=== PATIENT | male | born 1945 | race Caucasian/White ===

== ENCOUNTER 2019-01-17 01:09 | Outpatient (CLI) | payer MEDICARE, OTHER, SELFPAY ==
--- NOTE | 2019-01-17 15:07 | DI.US_ITS ---
SYMPTOM/DIAGNOSIS: PAINLESS HEMATURIA, R31.9 RENAL ULTRASOUND: The kidneys are normal in size and shape. There is a 27 mm. in greatest diameter simple cyst of the left renal mid pole medulla. No other mass identified. No evidence of hydronephrosis or nephrolithiasis. Pre and postvoid urinary bladder volume measurements are 131 cc's and 0 cc's respectively. Prostate enlarged with prostatic volume calculated at 114 cc's. CONCLUSION: Essentially negative renal ultrasound. Incidental simple left renal cyst. Prostatic enlargement noted.
== END 2019-01-17 01:29 ==
PROVIDERS: PCP Family Medicine; Visit Provider Family Medicine
DX: R31.9 Hematuria, unspecified (principal); N28.1 Cyst of kidney, acquired; N40.0 Benign prostatic hyperplasia without lower urinary tract symptoms
CPT/HCPCS: 76770

== ENCOUNTER 2021-01-22 13:59 | Outpatient (CLI) | payer MEDICARE, SELFPAY ==
--- NOTE | 2021-01-22 13:45 | DI.US_ITS ---
Exam(s) US LOWER EXTREMITY VENOUS RT EXAM: US LOWER EXTREMITY VENOUS RT CLINICAL HISTORY: Rt lower extremity edema, R22.41, R60.9, r/o DVT TECHNIQUE: Grayscale, color, and doppler imaging of the deep venous system of the right lower extrem ity was performed. COMPARISON: US US renal from 01/17/2019 FINDINGS: There is no evidence of intraluminal thrombus and there is normal compression and augmentation demons trated within the common femoral vein, femoral vein, and popliteal vein. In the ipsilateral calf the interrogated veins also exhibit normal compression/ augmentation properti es. The ipsilateral saphenofemoral junction is patent. IMPRESSION: 1. No evidence of DVT in the right lower extremity. 2. DATA REPOSITORY:
[2021-01-22 14:39] LABS: D-Dimer 1225 ng/mlFEU (<500)
== END 2021-01-22 14:00 | disposition home or self-care (01) ==
LOC: LBO 14:11
PROVIDERS: PCP Nurse Practitioner Family; Visit Provider Nurse Practitioner Family
DX: R60.0 Localized edema (principal); R22.41 Localized swelling, mass and lump, right lower limb
CPT/HCPCS: 36415; 85379; 93971

== ENCOUNTER 2021-02-17 11:17 | Inpatient (IN) | payer MEDICARE, SELFPAY ==
[2021-02-17] VITALS (118 sets, daily range): BP systolic 99–169; BP diastolic 46–101; PULSE 57–92; RESP 16–30; TEMP 36.6–36.8; O2SAT 62–100
--- NOTE | 2021-02-17 11:15 | RT.EKG_ITS ---
APPROVED REPORT Exam: Resting ECG Reason for Exam: sob Patient Location: E HR:73 bpm ECG Measurements Heart Rate 73 AXIS [place] 197 P 57 QRSd 105 QRS 85 QT 382 T 62 QTc 421 Conclusion Sinus rhythm...normal P axis, V-rate 60- 99 sinus rhythm at 73, normal axis, T wave flattening aVL, V2, no prior for comparison, no STEMI, nondia gnostic EKG
--- NOTE | 2021-02-17 11:43 | ED.GENADUL_ITS ---
Discharge Plan Disposition Patient Disposition: [facility] INPATIENT Condition: Stable Discharge Details Clinical Impression: Acute dyspnea, Hypoxemia Admit Date/Time: 02/18/21 11:40 Admit Provider: Brandt Vidal Attending Provider: Brandt Vidal Primary Care Provider: Elkin Oshea ED Provider: Edwin Gan Discharge Data Discharge Date/Time-TO BE ENTERED AT DEPARTURE: 02/17/21 20:00 Medical Decision Making <Aisha Merida MD - Last Filed: 02/19/21 08:34> Murray Arndt is a 76-year-old man with history of hyperlipidemia, hypertension, atrial fibrillation who presented to the emergency department with shortness of breath of the past few days, also with mild cough. On exam patient with benign cardiopulmonary exam. There is edema of the right lower leg that patient reports is chronic since injury several weeks ago. Concern for acute coronary syndrome, pulmonary embolism, pneumonia, Covid (patient fully vaccinated), CHF, other. EKG is nondiagnostic. Plan for screening labs, chest x-ray, IV placement, telemetry. Will monitor and reassess. Troponin elevated at 0.07. Discussed Pt presentation and results with Dr. Guaman of cardiology, per his recommendation okay to hold heparin and other treatment for NSTEMI at this point, trend troponin. D-dimer elevated, will obtain CT chest. CT chest negative. Troponin elevated at 0.11 from 0.07. [facility] at [phone], awaiting callback. [facility] contacted at 1600, awaiting callback. [facility] refused secondary to capacity issues. Pt states that refuses to be transferred farther than [facility], will leave AMA and go home in that case. Patient presentation results discussed with cardiology team at [facility], patient accepted for transfer to their service tomorrow, accepting physician is Dr. Velazquez. Cardiology recommend heparin bolus and infusion in addition to aspirin, no Plavix at this time. No other acute interventions recommended. Plan for patient to be admitted here at [facility] with transfer to [facility] tomorrow. At this time transfer to [facility] tomorrow with admission here tonight is advantageous to attempting transfer to accepting facility with cardiology service tonight given Pt's repeated request to stay here or no farthe r than [facility]. Pt signed out to Dr. Gan at time of shift change with admission to [facility] pending. Medical Records Medical records reviewed: Yes I reviewed the patient's medical records. Imaging Data Radiologic Study: Attestation: I personally reviewed and interpreted this imaging study as follows: Radiologist's impression: Exam(s) XR PORTABLE CHEST AP EXAM: XR PORTABLE CHEST AP CLINICAL HISTORY: SOB. TECHNIQUE: 2D digital imaging was performed. COMPARISON: CT UPPER ABD WITH CONTRAST (P) from 12/01/2011 CT UPPER ABD WITH CONTRAST (P) from 12/01/2011 FINDINGS: Cardiomegaly. The mediastinum is not widened. Lungs are clear. No pleural effusions. No pneumothorax. No pulmonary edema. Lungs are clear. No infiltrates nor obvious pleural effusions. IMPRESSION: No acute pulmonary findings on this single AP portable view of the chest. If clinically indicated follow-up PA and lateral views can be performed. EXAM: CT CHEST PE CTA CLINICAL HISTORY: SOB. TECHNIQUE: Imaging Protocol: CT angiography of the chest was performed using pulmonary embolus protocol. Multi planar reconstructions were performed. CONTRAST MATERIAL: Intravenous: Omnipaque 350 Contrast volume: 100 cc COMPARISON: CT UPPER ABD WITH CONTRAST (P) from 12/01/2011 FINDINGS: CHEST: PULMONARY ARTERIES: There are no intraluminal filling defects to suggest acute pulmonary emboli. LUNGS: There are no infiltrates nor evidence of pulmonary infarction.. Mild increased markings noted in the inferior lingular segment of the left lung. There are no findings in trachea mainstem bronchi. There are no pleural effusions. MEDIASTINUM: There is no hilar nor mediastinal adenopathy. Visualized thyroid unremarkable. CARDIAC: Heart size is minimally prominent. There is no pericardial effusion. Coronary artery calcification is noted in the left coronary artery and LAD.Caliber of the thoracic aorta is within normal limits. There is no significant shift of the interventricular septum. PARTIALLY VISUALIZED UPPERMOST ABDOMEN: There is nodular thickening of the genu of the left adrenal gland,. Right adrenal gland unremarkable. OSSEOUS: No significant osseous lesions.. IMPRESSION: 1. No evidence of acute pulmonary emboli. No evidence of pulmonary infarction.No pleural effusions. 2. Mild increased markings are noted in the inferior lingular segment of the left lung. No intrathoracic adenopathy 3. Coronary artery calcification noted. Small left adrenal nodule evident. Probably small adenoma. Lab Data Lab results reviewed: Yes I reviewed the patient's lab results. ECG Data Attestation: I personally reviewed and interpreted this ECG (s) as follows: Interpretation: EKG shows sinus rhythm at 73, normal axis, T wave flattening aVL, V2, no prior for comparison, no STEMI, nondiagnostic EKG Repeat EKG 1444 shows sinus rhythm at 67, normal axis, T wave flattening aVL, V2, no major change from prior, no STEMI, nondiagnostic EKG <Edwin Gan DO - Last Filed: 02/17/21 18:03> Patient was signed out pending VBG and consult with hospitalist. VBG did return, and demonstrated normal pH but elevated PCO2 likely indicative of a chronic component. Patient remained stable in the ED. Contacted the hospitalist Dr. Vidal, he agrees with the assessment and plan. He will place admission orders. Heparinization started. I have extensively reviewed the treatment plan with the patient. I have addressed all patient concerns at this time. I have also discussed the plan with the admitting physician and they agree with the current assessment and plan and have agreed to assume responsibility for the patient. All parties demonstrate verbal understanding and agreement with our assessment and plan at this time. The documentation in this chart was dictated using [employer] dictation software. Please excuse any dictation errors. HPI <Aisha Merida MD - Last Filed: 02/19/21 08:34> General Mode of arrival: ambulatory . Date/Time Provider Initiated Documentation: 02/17/21 11:19 . Limitations to Documentation: no limitations . Information obtained by: patient, RN/MD, RN notes reviewed and old records reviewed . HPI Narrative: Murray Arndt is a 76 y/o man with history of hypertension, hyperlipidemia presenting to emergency department with chief complaint shortness of breath. Patient reports that he presented to [facility] today for 2 days of shortness of breath, cough productive of clear sputum, runny nose, sinus congestion. Express care reported to this ED that patient initially had O2 sat 74% on room air ER improved with 4 L nasal cannula to 90s. Express care performed trial ambulation without O2, and patient sats again dropped to the 70s, patient sent to the emergency department for further evaluation. Patient reiterates 2 to 3 days of shortness of breath worse with exertion, mild cough productive of clear sputum, runny nose. He denies having any pain whatsoever. Patient reports that he does not feel short of breath than arriving in the emergency department and sitting in stretcher. He denies fevers, vomiting, diarrhea, numbness, weakness, rash. Has been eating and drinking as usual. Patient reports he does not recall having similar symptoms in the past. He has been vaccinated for Covid. Patient reports that he fell several weeks ago injuring his right lower leg. Patient reports that he has had some persistent swelling in that leg and recently underwent ultrasound to evaluate for blood clot 01/17/21, which was negative. Related Data Home Medications Medication Instructions Recorded Confirmed aspirin [Aspir 81] 81 mg PO DIRECTED tab-cap 01/11/13 02/17/21 multivitamin 1 ea PO DAILY tab 01/11/13 02/17/21 vitamin E 2 cap PO DAILY 07/25/13 02/17/21 acetaminophen [Tylenol Extra 500 mg PO PRN #2 11/21/15 02/17/21 Strength] glucosamine sulfate 1,000 mg 1,000 mg PO DAILY cap 10/25/18 02/17/21 capsule furosemide 40 mg tablet 40 mg PO DAILY #60 tab 01/17/21 02/17/21 amlodipine 10 mg tablet 10 mg PO DAILY #90 tab-cap 01/22/21 02/17/21 losartan 100 1 tab PO DAILY #90 tab 01/30/21 02/17/21 mg-hydrochlorothiazide 25 mg tablet Previous Rx's Medication Instructions Recorded furosemide 40 mg tablet 40 mg PO DAILY #60 tab 01/17/21 amlodipine 10 mg tablet 10 mg PO DAILY #90 tab-cap 01/22/21 losartan 100 1 tab PO DAILY #90 tab 01/30/21 mg-hydrochlorothiazide 25 mg tablet Allergies Allergy/AdvReac Type Severity Reaction Status Date / Time lisinopril AdvReac Verified 02/17/21 11:33 General Stated Complaint: SOB LORI: 2 Review of Systems <Aisha Merida MD - Last Filed: 02/19/21 08:34> Narrative: Constitutional: denies fevers Eyes: denies eye pain ENT: denies ear pain, dental pain, sore throat, reports nasal congestion Cardiovascular: denies chest pain, reports right lower extremity edema over the past few weeks, improving Respiratory: Reports SOB, mild cough GI: denies abdominal pain, vomiting, diarrhea : denies flank pain MSK: denies back pain, neck pain, arthralgias, myalgias Skin: denies rash Neuro: denies headaches, numbness, weakness PFSH <Aisha Merida MD - Last Filed: 02/19/21 08:34> Medical History (Updated 02/18/21 @ 11:36 by Munira Jerez MD) Obesity, morbid, BMI 50 or higher Surgical History Tonsillectomy and adenoidectomy Family History Mother , age 70+ Heart disease Stroke Cerebral hemorrhage Father , age 70+ Heart disease Stroke Sepsis pancreas Brother Heart disease Stroke Brother Heart disease Stroke Brother , age 58 No problems noted. Son No problems noted. Daughter No problems noted. Social History Smoking/Tobacco Use Status: Former Tobacco Use Tobacco: How many years used: 13 Quit status: has quit before Smoking risk assessment performed?: Yes Alcohol Intake: current Alcohol Intake frequency: holidays/special occasions only Drug use: Never Substance use type: does not use Caregiver/Support person: No Household members: spouse Housing: house Communication Needs: Hard of Hearing and Corrective Lenses Do you need help understanding health information?: Never Pets and animals: Yes Pets and animals: dog(s) Sexually active: No Do you think of yourself as: straight/heterosexual Current gender identity: male What is your relationship status?: How often do you talk on the phone with friends or family?: once per week How often do you get together with friends or relatives?: once per week How often do you attend caodaism or amish services?: 1-3 times per year Do you belong to any clubs or organized social groups?: no Panel score (0-1 are the most socially isolated patients): 1 What type of physical activity do you participate in: walking Duration: < 15 minutes/day Frequency: 3-4 times per week Maribel/Hindu: Oriental Orthodox Special maribel needs: No Seatbelt use: always Helmet use: Yes Helmet use: always 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 Do you feel safe at home: Yes Do you feel safe in your relationship?: Yes Exam <Aisha Merida MD - Last Filed: 02/19/21 08:34> Narrative Exam Narrative: Constitutional: [id number], pleasant, conversing normally HENT: head atraumatic/normocephalic/normal inspection, mucous membranes moist Eyes: conjunctiva normal, sclera normal, pupils 3mm b/l Neck: no stridor, normal ROM, trachea midline Chest: normal inspection Resp: normal work of breathing, LCTAB Cardio: normal rate, normal rhythm, no murmur appreciated GI: abdomen soft, non-tender, non-distended Back: normal inspection, no rash Skin: warm, dry, normal color, no rash Neuro: alert, not altered, grossly non-focal, normal tone Ext: 2+ edema right lower leg with chronic skin changes, no posterior calf tenderness to palpation bilaterally Psych: normal mood, normal affect, normal behavior Course <Aisha Merida MD - Last Filed: 02/19/21 08:34> Vital Signs Vital signs: Vital Signs Temperature 36.7 C 02/17/21 11:23 Pulse 79 02/17/21 11:23 Respiratory Rate 20 02/17/21 11:23 Blood Pressure 153/67 H 02/17/21 11:23 Pulse Oximetry 62 L 02/17/21 11:23 Temperature 36.7 C 02/17/21 11:23 Temperature Source Temporal Artery Scan 02/17/21 11:23 Pulse 79 02/17/21 11:23 Respiratory Rate 20 02/17/21 11:23 Respiratory Effort 02/17/21 11:28 Blood Pressure 153/67 H 02/17/21 11:23 Blood Pressure Position Sitting 02/17/21 11:23 Pulse Oximetry 62 L 02/17/21 11:23 Oxygen Delivery Method Room Air 02/17/21 11:23 Oxygen Flow Rate 0 02/17/21 11:23 Comment 02/17/21 11:23 Sign Out <Asiha Merida MD - Last Filed: 02/19/21 08:34> Sign Out Data: Sign Out Comment: Patient signed out to Dr. aGn at time of shift change with admission, VBG pending Last updated by Aisha Merida MD at 02/17/21 16:46
[2021-02-17 11:51] LABS: Source Nasal/Nares
[2021-02-17 11:52] LABS: Abs Immature Grans 0.03 10^3/uL (0.0-0.06); Absolute Basophil Count 0.02 10^3/uL (0.0-0.2); Absolute Eosinophil Count 0.02 10^3/uL (0.0-0.7); Absolute Lymphocyte Count 2.07 10^3/uL (1.2-3.4); Absolute Monocyte Count 0.97 10^3/uL (0.1-0.8); Absolute Neutrophil Count 5.52 10^3/uL (1.2-6.7); Basophils % 0.2; Eosinophils % 0.2; HCT 44.4 % (40.0-50.0); HGB 14.1 g/dL (13.5-17.5); Immature Grans % 0.3; MCH 30.6 pg (27.0-33.0); MCHC 31.8 % (32.0-36.0); MCV 96.3 fL (80-95); MPV 9.6 fL (8.0-11.0); Monocytes % 11.2; Neutrophils % 64.1; Nucleated RBC 0 %; Platelet Count 287 10^3/uL (130-400); RBC 4.61 10^6/uL (4.36-5.78); RDW 14.1 % (11.8-14.1); RDW-SD 49.9 fL; WBC 8.63 10^3/uL (4.4-10.8)
[2021-02-17 12:08] LABS: ALT 34 U/L (16-63); AST 21 U/L (15-37); Albumin 3.6 g/dL (3.4-5.0); Alkaline Phosphatase 63 U/L (46-116); Anion Gap 3.1 mmol/L (3-11); BUN 18 mg/dL (7-18); Bilirubin, Total 0.6 mg/dL (0.2-1.0); CO2 39.9 mmol/L (21.0-32.0); CREATININE 0.8 mg/dL (0.70-1.30); Calcium 8.9 mg/dL (8.5-10.1); Chloride 97 mmol/L (98-107); Glucose 111 mg/dL (74-106); Magnesium 2.1 mg/dL (1.8-2.4); Potassium 3.5 mmol/L (3.5-5.1); Sodium 140 mmol/L (136-145); Total Protein 7.4 g/dL (6.4-8.2)
--- NOTE | 2021-02-17 12:12 | DI.RAD_ITS ---
Exam(s) XR PORTABLE CHEST AP EXAM: XR PORTABLE CHEST AP CLINICAL HISTORY: SOB. TECHNIQUE: 2D digital imaging was performed. COMPARISON: CT UPPER ABD WITH CONTRAST (P) from 12/01/2011 CT UPPER ABD WITH CONTRAST (P) from 12/01/2011 FINDINGS: Cardiomegaly. The mediastinum is not widened. Lungs are clear. No pleural effusions. No pneumotho rax. No pulmonary edema. Lungs are clear. No infiltrates nor obvious pleural effusions. IMPRESSION: No acute pulmonary findings on this single AP portable view of the chest. If clinically indicated follow-up PA and lateral views can be performed. DATA REPOSITORY: RADIATION DOSE DELIVERED: All CT scans at this facility use at least one of these dose optimization techniques: automated exposure control; mA and/or kV adjustment per patient size (includes targeted e xams where dose is matched to clinical indication); or iterative reconstruction.
[2021-02-17 12:14] LABS: NT-proBNP 207 pg/mL (<300)
[2021-02-17 12:16] LABS: Troponin I 0.07 ng/mL (<0.06)
[2021-02-17 12:27] LABS: D-Dimer 876 ng/mlFEU (<500)
--- NOTE | 2021-02-17 12:30 | DI.CT_ITS ---
Exam(s) CT CHEST PE CTA EXAM: CT CHEST PE CTA CLINICAL HISTORY: SOB. TECHNIQUE: Imaging Protocol: CT angiography of the chest was performed using pulmonary embolus lulu col. Multi planar reconstructions were performed. CONTRAST MATERIAL: Intravenous: Omnipaque 350 Contrast volume: 100 cc COMPARISON: CT UPPER ABD WITH CONTRAST (P) from 12/01/2011 FINDINGS: CHEST: PULMONARY ARTERIES: There are no intraluminal filling defects to suggest acute pulmonary emboli. LUNGS: There are no infiltrates nor evidence of pulmonary infarction.. Mild increased markings noted in the inferior lingular segment of the left lung. There are no findings in trachea mainstem bronchi . There are no pleural effusions. MEDIASTINUM: There is no hilar nor mediastinal adenopathy. Visualized thyroid unremarkable. CARDIAC: Heart size is minimally prominent. There is no pericardial effusion. Coronary artery calci fication is noted in the left coronary artery and LAD.Caliber of the thoracic aorta is within normal limits. There is no significant shift of the interventricular septum. PARTIALLY VISUALIZED UPPERMOST ABDOMEN: There is nodular thickening of the genu of the left adrenal g land,. Right adrenal gland unremarkable. OSSEOUS: No significant osseous lesions.. IMPRESSION: 1. No evidence of acute pulmonary emboli. No evidence of pulmonary infarction.No pleural effusions. 2. Mild increased markings are noted in the inferior lingular segment of the left lung. No intrathor acic adenopathy 3. Coronary artery calcification noted. Small left adrenal nodule evident. Probably small adenoma. RADIATION DOSE DELIVERED: 818.23mGy.cm Total DLP DATA REPOSITORY: All CT scans at this facility are submitted to the National Radiology Data Registry (NRDR) Dose Index Registry (DIR) with the [employer] (ACR). RADIATION OPTIMIZATION: All CT scans at this facility use at least one of these dose optimization te chniques: automated exposure control; mA and/or kV adjustment per patient size (includes targeted exa ms where dose is matched to clinical indication); or iterative reconstruction.
[2021-02-17 12:47] LABS: COVID-19 PCR Negative (Negative)
[2021-02-17] MEDS: Normal Saline Flush 10 ML SYR IVP (13:40)
[2021-02-17] MEDS: Normal Saline - Diluent 50 ML VIAL IV (13:46)
[2021-02-17] MEDS: Omnipaque 350 MG/ML 100 ML BTL IJ (13:46)
--- NOTE | 2021-02-17 14:30 | RT.EKG_ITS ---
APPROVED REPORT Exam: Resting ECG Reason for Exam: repeat for SOB Patient Location: E HR:67 bpm ECG Measurements Heart Rate 67 AXIS [place] 198 P 55 QRSd 106 QRS 46 QT 408 T 55 QTc 430 Conclusion Sinus rhythm...normal P axis, V-rate 60- 99 sinus rhythm at 67, normal axis, T wave flattening aVL, V2, no major change from prior, no STEMI, non diagnostic EKG
[2021-02-17 15:18] LABS: Troponin I 0.11 ng/mL (<0.06)
[2021-02-17] MEDS: Aspirin 81 MG CHEW 324 MG CH (15:47)
[2021-02-17 17:08] LABS: HCO3 (Venous) 41 mmol/L (23-28); O2 Sat (Venous) 93 %; TCO2 (Venous) 37 mmol/L (24-29); pH (Venous) 7.34 (7.31-7.41); pO2 (Venous) 70 mmHg
[2021-02-17 17:11] LABS: pCO2 (Venous) 77 mmHg (41-51)
[2021-02-17 17:12] LABS: BE (Venous) > 15 mmol/L (-2-3)
--- NOTE | 2021-02-17 17:55 | W.PM.HP.N ---
Date of service: 02/17/21 Time of Service: 17:55 Assessment and Plan Assessment and plan (1) NSTEMI (non-ST elevated myocardial infarction): Status: Acute Assessment and plan: NSTEMI, unclear if primary or result of periods of hypoxia. Will continue hep qtt and add Plavix for DUAP. I am not sure at present how to completely account for the hypoxia, but the elevated HCO3 and relatively well compensated respiratory acidosis suggest a degree of chronic hypoventilation -- perhaps an element of latent COPD or Pickwick[place]. All perhaps in a setting of possible pulmonary hypertension (AYAN (?) also a factor?). ACS: continue hep, DUAP, third trop, await transfer Hypoxia: easily oxygenating with supplemental O2. Given possibility (probability) of chronic hypoventilation will limit sats to low 90s as he may be a retainer. I would otherwise also consider a trial updraft but will hold in setting of ACS, as long as he is oxygenating, so as to avoid increase pulse rate. This does not appear to be a matter of CHF based on both exam, CXR and normal BNP so I do not see a role for trial diuresis, though likely there is an element of right sided failure to be addressed longer term. History of Present Illness History of Present Illness Chief Complaint: ESQIUVEL Narrative: 76 male former smoker, morbidly obese -- here with several days of ESQUIVEL. Sat to 70s in [facility], and was told there might be some wheezing (per ). Sent to ER. In ER findings of note for sats 60s-80s RA, mid-high 90s on 4L. W/u shows trop#1 0.07, #2 0.11. EKG shows flattened TW AVL, V2, no priors. d-Dimer 876, CTA neg PE, CKR no acute findings. BNP 174. Other findings notable for HCO3 39 and VBG showing pH 7.34 with pCO2 70. Case reviewed with [facility] [place], accepts for tomorrow, on hep qtt and has received ASA. Denies CP. ER notes runny nose and cough but patient adamantly denies this to me. states he snores and sometime wakes up grunting/snorting but has never had eval for AYAN. Review of Systems All systems reviewed & are unremarkable except as noted in HPI and below PFSH Surgical History Tonsillectomy and adenoidectomy Family History Mother , age 70+ Heart disease Stroke Cerebral hemorrhage Father , age 70+ Heart disease Stroke Sepsis pancreas Brother Heart disease Stroke Brother Heart disease Stroke Brother , age 58 No problems noted. Son No problems noted. Daughter No problems noted. Social History Smoking/Tobacco Use Status: Former Tobacco Use Tobacco: How many years used: 13 Quit status: has quit before Smoking risk assessment performed?: Yes Alcohol Intake: current Alcohol Intake frequency: holidays/special occasions only Drug use: Never Substance use type: does not use Caregiver/Support person: No Household members: spouse Housing: house Communication Needs: Hard of Hearing and Corrective Lenses Do you need help understanding health information?: Never Pets and animals: Yes Pets and animals: dog(s) Sexually active: No Do you think of yourself as: straight/heterosexual Current gender identity: male What is your relationship status?: How often do you talk on the phone with friends or family?: once per week How often do you get together with friends or relatives?: once per week How often do you attend protestant or yazdanism services?: 1-3 times per year Do you belong to any clubs or organized social groups?: no Panel score (0-1 are the most socially isolated patients): 1 What type of physical activity do you participate in: walking Duration: < 15 minutes/day Frequency: 3-4 times per week Maribel/Mandaen: Hoahaoism Special maribel needs: No Seatbelt use: always Helmet use: Yes Helmet use: always Drive intox or ride w/intox cmv driver: No Do you feel safe at home: Yes Do you feel safe in your relationship?: Yes Meds Allergies and Home Medications Allergies Allergy/AdvReac Type Severity Reaction Status Date / Time lisinopril AdvReac Verified 02/17/21 11:33 Home Medications Medication Instructions Recorded Confirmed Type aspirin [Aspir 81] 81 mg PO DIRECTED tab-cap 01/11/13 02/17/21 History multivitamin 1 ea PO DAILY tab 01/11/13 02/17/21 History vitamin E 2 cap PO DAILY 07/25/13 02/17/21 History acetaminophen [Tylenol Extra 500 mg PO PRN #2 11/21/15 02/17/21 History Strength] glucosamine sulfate 1,000 mg 1,000 mg PO DAILY cap 10/25/18 02/17/21 History capsule furosemide 40 mg tablet 40 mg PO DAILY #60 tab 01/17/21 02/17/21 Rx amlodipine 10 mg tablet 10 mg PO DAILY #90 tab-cap 01/22/21 02/17/21 Rx losartan 100 1 tab PO DAILY #90 tab 01/30/21 02/17/21 Rx mg-hydrochlorothiazide 25 mg tablet Exam Narrative Exam Narrative: 131/87, 71, 36.7, 25, 99% 4L. HEENT atraumatic; neck unable to read JVP; lung diminished but clear; heart distant, no RV heave, RRR; abdomen soft and NT; extremities 3+ lymphedema LEs; neuro Ox3, moves all 4s Results Labs Result diagrams: 02/17/21 11:40 02/17/21 11:40 Labs: Laboratory Results - last 24 hr 02/17/21 02/17/21 02/17/21 11:40 11:40 11:40 WBC 8.63 RBC 4.61 Hgb 14.1 Hct 44.4 MCV 96.3 H MCH 30.6 MCHC 31.8 L RDW 14.1 Plt Count 287 MPV 9.6 Immature Gran % 0.3 Neutrophils % 64.1 Lymphocytes % 24.0 Monocytes % 11.2 Eosinophils % 0.2 Basophils % 0.2 Nucleated RBC % 0 Absolute Neutrophils 5.52 Absolute Lymphocytes 2.07 Absolute Monocytes 0.97 H Absolute Eosinophils 0.02 Absolute Basophils 0.02 APTT D-Dimer ABG Sample Site ABG pH ABG pCO2 ABG pO2 ABG HCO3 ABG Total CO2 ABG O2 Saturation ABG Base Excess VBG pH VBG pCO2 VBG pO2 VBG HCO3 VBG Total CO2 VBG O2 Saturation VBG Base Excess Oxygen Liter Flow FiO2 Sodium 140 Potassium 3.5 Chloride 97 L Carbon Dioxide 39.9 H Anion Gap 3.1 BUN 18 Creatinine 0.8 Estimated GFR/1.73 m2 >= 60.00 Glucose 111 H Calcium 8.9 Magnesium 2.1 Total Bilirubin 0.6 AST 21 ALT 34 Alkaline Phosphatase 63 Troponin I 0.07 H NT-Pro-B Natriuret Pep 207 Total Protein 7.4 Albumin 3.6 COVID-19 Source SARS-CoV-2 (PCR) 02/17/21 02/17/21 02/17/21 11:40 11:44 14:40 WBC RBC Hgb Hct MCV MCH MCHC RDW Plt Count MPV Immature Gran % Neutrophils % Lymphocytes % Monocytes % Eosinophils % Basophils % Nucleated RBC % Absolute Neutrophils Absolute Lymphocytes Absolute Monocytes Absolute Eosinophils Absolute Basophils APTT D-Dimer 876 H ABG Sample Site ABG pH ABG pCO2 ABG pO2 ABG HCO3 ABG Total CO2 ABG O2 Saturation ABG Base Excess VBG pH VBG pCO2 VBG pO2 VBG HCO3 VBG Total CO2 VBG O2 Saturation VBG Base Excess Oxygen Liter Flow FiO2 Sodium Potassium Chloride Carbon Dioxide Anion Gap BUN Creatinine Estimated GFR/1.73 m2 Glucose Calcium Magnesium Total Bilirubin AST ALT Alkaline Phosphatase Troponin I 0.11 H* NT-Pro-B Natriuret Pep Total Protein Albumin COVID-19 Source Nasal/Nares SARS-CoV-2 (PCR) Negative 02/17/21 02/17/21 02/17/21 16:02 17:00 17:00 WBC RBC Hgb Hct MCV MCH MCHC RDW Plt Count MPV Immature Gran % Neutrophils % Lymphocytes % Monocytes % Eosinophils % Basophils % Nucleated RBC % Absolute Neutrophils Absolute Lymphocytes Absolute Monocytes Absolute Eosinophils Absolute Basophils APTT 24.0 D-Dimer ABG Sample Site Cancelled ABG pH Cancelled ABG pCO2 Cancelled ABG pO2 Cancelled ABG HCO3 Cancelled ABG Total CO2 Cancelled ABG O2 Saturation Cancelled ABG Base Excess Cancelled VBG pH 7.34 VBG pCO2 77 H* VBG pO2 70 VBG HCO3 41 H VBG Total CO2 37 H VBG O2 Saturation 93 VBG Base Excess > 15 H Oxygen Liter Flow Cancelled FiO2 Cancelled Sodium Potassium Chloride Carbon Dioxide Anion Gap BUN Creatinine Estimated GFR/1.73 m2 Glucose Calcium Magnesium Total Bilirubin AST ALT Alkaline Phosphatase Troponin I NT-Pro-B Natriuret Pep Total Protein Albumin COVID-19 Source SARS-CoV-2 (PCR) Last Vital Signs Temp 36.7 C 02/17/21 11:23 Pulse 71 02/17/21 17:47 Resp 25 H 02/17/21 17:50 BP 131/87 02/17/21 17:47 Pulse Ox 99 02/17/21 17:50
[2021-02-17] MEDS: Clopidogrel 300 MG TAB PO (19:15)
--- NOTE | 2021-02-17 19:17 | NUR.NOTE ---
Nursing Note: Patient rang asking how much longer to wait for bed upstairs. Stated he was very uncomfortable and needed to use the bathroom. Offered to unhook him and assist him to bathroom but he stated he rather wait until he got upstairs. Repositioned him in bed,assisting him to standing position and removing transfer mat under him and had him sit up higher in bed. With exertion after getting settled in bed, noted that oxygen had dropped to 82% on 4L. Did gradually increase to the 90's again with rest. Gave his 300mg Plavix and diet itzel grgeory. Will continue to monitor.
[2021-02-17 20:17] LABS: Troponin I 0.11 ng/mL (<0.06)
[2021-02-17 23:15] LABS: PTT Activated 27.2 sec (21.0-27.5)
[2021-02-18] VITALS (163 sets, daily range): BP systolic 103–140; BP diastolic 47–86; PULSE 53–151; RESP 12–39; TEMP 36.6–37.2; O2SAT 84–97
--- NOTE | 2021-02-18 | DI.US_ITS ---
APPROVED REPORT EXAM: Comprehensive 2D, Doppler, and color-flow Echocardiogram Patient Location: In-Patient Room/Bed: [id number] [employer] Processing Technician: Madina Wynne RDCS (AE) Indications: NSTEMI, A Fib Other Information Study Quality: Technically Limited. Technically limited study due to body habitus, inability to posit ion patient. Conclusion This is a technically limited study. Left Ventricle : The left ventricle is normal size. The left ventricular systolic function is normal. The left ventricular ejection fraction is within the normal range. Mild concentric left ventricular hypertrophy. Regional wall motion is not well visualized but grossly normal. LVEF is 58%. Right Ventricle : Right ventricle is not well visualized. Right ventricular systolic function could n ot be assessed. Valves: There are no hemodynamically significant valvular lesions. Atria : The left atrium size is normal. Right atrium is not well visualized. Great Vessels : The aortic root is normal in size. The ascending aorta is normal in size. The IVC col lapses <50% with inspiration. Please see remainder of study for further details. Wall motion Left Ventricle The left ventricle is normal size. The left ventricular systolic function is normal. The left ventric ular ejection fraction is within the normal range. Mild concentric left ventricular hypertrophy. Pippa onal wall motion is not well visualized but grossly normal. There is no ventricular septal defect vis ualized. LVEF is 58%. Right Ventricle Right ventricle is not well visualized. Right ventricular systolic function could not be assessed. Atria The left atrium size is normal. Right atrium is not well visualized. The interatrial septum is intact with no evidence for an atrial septal defect. Aortic Valve The aortic valve is normal in structure. Aortic valve is probably trileaflet. There is no aortic valv ular stenosis. No aortic regurgitation is present. Mitral Valve The mitral valve is normal in structure. No evidence of mitral valve stenosis. Trace mitral regurgita tion. Tricuspid Valve Tricuspid valve is not well visualized. Tricuspid valve is grossly normal in structure and function. There is no tricuspid valve stenosis. There is no tricuspid valve regurgitation noted. Pulmonic Valve Pulmonic valve is not well visualized. There is no pulmonic valvular stenosis. There is no pulmonic v alvular regurgitation. Great Vessels The aortic root is normal in size. The ascending aorta is normal in size. The IVC collapses <50% with inspiration. Pericardium There is no pericardial effusion. 2D Dimensions IVSD d PLAX 1.27 cm M: 0.6-1.2 LVPW d PLAX 1.25 cm M: 0.6 - 1.2 LVID d PLAX 4.93 cm M: 4.2 - 5.8 LVDs 3.35 cm M: 2.5 - 4.0 Ao Root d 3.01 cm M: 3.1 - 3.7 Ao Asc Diam d 3.42 cm M: 2.6 - 3.4 LV EF Teichholz 58.8 % FS 31.20 % LV Diastology MV E Vmax 0.95 (0.4-1.3 m/s) Aortic Valve LVOT Area 3.63 cm2 AoV Area Vmax 2.10 cm2 LVOT Vmax 0.91 m/s AoV Area/ BSA (Vmax) 0.78 cm2/m2 LVOT Mean Cristo. 0.61 m/s SLIME Mean Cristo. 1.81 cm2 LVOT Peak Grad 3.3 mmHg SLIME Mean Cristo. Index 0.67 cm2/m2 LVOT Mean Grad 1.7 mmHg LVOT VTI 0.123 m LVOT Diam s 2.10 cm AoV Vmax 1.56 m/s Velocity Ratio 0.58 AoV Mean Cristo. 1.22 m/s AoV Peak Grad 9.8 mmHg LVOT SV 44.65 mL AoV Mean Grad 6.2 mmHg AoV VTI 0.267 m AoV Area VTI 1.67 cm2 AoV Area/ BSA (VTI) 0.62 cm/m2 Mitral Valve MV DT 230 (160-240 msec) MV PHT 67 msec MV Area PHT 3.30 cm2 Pulmonary Valve PV Vmax 1.38 (0.5-1.5 m/s) RVOT Peak Gr. 2.30 mmHg PV Peak Grad 7.6 mmHg RVOT Mean Gr. 1.40 mmHg PV Mean Grad 3.6 mmHg RVOT VTI 0.117 m PV VTI 0.239 m RVOT Vmax 0.76 m/s
--- NOTE | 2021-02-18 07:00 | RT.EKG_ITS ---
APPROVED REPORT Exam: Resting ECG Reason for Exam: Afib RVR Patient Location: I HR:137 bpm ECG Measurements Heart Rate 137 AXIS NH [id number] P [id number] QRSd 100 QRS 118 QT 317 T 28 QTc 480 Conclusion Atrial fibrillation...? atrial activity Right axis deviation...QRS axis ( 41,672)
[2021-02-18 07:20] LABS: Troponin I 0.06 ng/mL (<0.06)
[2021-02-18] MEDS: Metoprolol 5 MG/5 ML VIAL IVP (07:40)
[2021-02-18] MEDS: Furosemide 40 MG TAB PO (07:41)
[2021-02-18] MEDS: Clopidogrel 75 MG TAB PO (07:41)
--- NOTE | 2021-02-18 07:46 | PDOC.CMIN ---
- If Service Date Differs Date of service: 02/18/21 Time of Service: 07:46 Care Management Initial Assess REASON FOR HOSPITALIZATION:: NSTEMI PAST MEDICAL HISTORY/PAST SURGICAL HISTORY:: Tonsillectomy and adenoidectomy PREVIOUS FUNCTIONAL STATUS/SOCIAL/FAMILY SUPPORTS:: Murray resides in [facility] with his , Beryl. He is independent at baseline in the community. CURRENT FUNCTIONAL STATUS:: Murray remains in the ICU at this time. Per MD, he will be evaluated for for oxygen needs prior to discharge. He is sleeping when CM attempts to meet with him. CM continues to follow. ADVANCE DIRECTIVES:: None on file. Has patient been provided with info about the portal/API?: Yes Did the patient sign up for the portal?: No CODE STATUS:: Full Code INSURANCE COVERAGE / FINANCIAL ISSUES:: Medicare. [place] CURRENT HOME/COMMUNITY SERVICES/EQUIPMENT:: None, currently. PRIMARY CARE PHYSICIAN:: [facility] POTENTIAL DISCHARGE NEEDS:: Cardiology consult, follow up appointments. PATIENT/FAMILY EDUCATION NEEDS:: Review discharge instructions, discuss Ask Me Three. ANTICIPATED BARRIERS TO DISCHARGE:: None identified. TRANSPORTATION:: Via private vehicle with his , if returning home. PLAN:: Murray remains in the ICU, anticipate he will be evaluated for home O2 needs prior to discharge. Per MD, anticipate new prescription for Eliquis; CM will support prescription process. CM continues to follow.
[2021-02-18] MEDS: Metoprolol 12.5 MG TAB PO ×3 (07:48→18:05)
[2021-02-18] MEDS: Aspirin E.C. 81 MG TABEC PO (07:48)
[2021-02-18 07:57] LABS: PTT Activated 45.2 sec (21.0-27.5)
[2021-02-18 08:05] LABS: BUN 18 mg/dL (7-18); CREATININE 0.7 mg/dL (0.70-1.30); Calcium 8.4 mg/dL (8.5-10.1); Calculated LDL 69 mg/dL (<100); Cholesterol 132 mg/dL (<200); Glucose 117 mg/dL (74-106); HDL Cholesterol 46 mg/dL (40-60); Hemoglobin A1C 5.8 % (<5.7); Triglyceride 85 mg/dL (<150)
[2021-02-18 08:06] LABS: Anion Gap 2.1 mmol/L (3-11); CO2 39.9 mmol/L (21.0-32.0); Chloride 98 mmol/L (98-107); Magnesium 2.3 mg/dL (1.8-2.4); Potassium 3.7 mmol/L (3.5-5.1); Sodium 140 mmol/L (136-145)
[2021-02-18 09:03] LABS: HCO3 (Venous) 42 mmol/L (23-28); O2 Sat (Venous) 91 %; TCO2 (Venous) 38 mmol/L (24-29); pH (Venous) 7.36 (7.31-7.41); pO2 (Venous) 60 mmHg
[2021-02-18 09:08] LABS: BE (Venous) > 15 mmol/L (-2-3)
[2021-02-18 09:09] LABS: pCO2 (Venous) 74 mmHg (41-51)
[2021-02-18] MEDS: Furosemide 40 MG/4 ML VIAL IVP (09:40)
[2021-02-18] MEDS: guaiFENesin 600 MG TABCR 1200 MG PO ×2 (09:40→19:33)
[2021-02-18] MEDS: Furosemide 20 MG/2 ML VIAL IVP (09:40)
--- NOTE | 2021-02-18 09:47 | PUCC_ITS ---
General Date of Service Date of service: 02/18/21 Time of Service: 08:00 Reason for Admission to ICU: Acute hypoxic and hypercapnic respiratory failure Assessment and Plan Assessment and plan (1) Acute on chronic respiratory failure with hypoxia and hypercapnia: Status: Acute (2) Pulmonary hypertension: Status: Acute (3) Right-sided heart failure: Status: Acute Qualifiers: Heart failure chronicity: acute on chronic Qualified Code(s): I50.813 - Acute on chronic right heart failure (4) Demand ischemia: Status: Acute Assessment and plan: This is a 76-year-old gentleman with a medical history of obesity, former smoking and hypertension. He has evidence of chronic right-sided heart failure and probable pulmonary hypertension likely due to obesity hypoventilatory syndrome and possibly some degree of obstructive lung disease contributing. He should be wearing noninvasive ventilation at night and with naps in order to prevent further CO2 retention and to help with his right- sided heart failure. His bedside ultrasound that I performed this morning did show an enlarged right ventricle with what appeared to be an adequate systolic function. His IVC was also plump with minimal respiratory variation. There was initial concern for ACS however given his clinical picture as well as normalization of troponins and the lack of a dynamic EKG this likely represents demand ischemia in the setting of his significant hypoxia. In my opinion the patient does not require transfer to [facility] as he does not require inpatient cardiac catheterization, however cardiology is being consulted to weigh in on the necessity for his transfer so we will defer to them. Recommendations Pulmonary: Hypoxic and Hypercapnic respiratory failure - continue supplemental oxygen as needed for O2 sat goal of 90% - BiPAP at night and with naps - recommend starting pressures: 18/8 to start with FiO2 to support a O2 sat of 90% - we will work on qualifying him for home NIV (BiPAP or AVAPS), in order for this to occur the following diagnostics need to occur once he is out of the ICU and closer to his baseline: - ABG while awake on prescribed O2 - inpatient spirometry - ABG done first thing after waking up - Duonebs q4 QID Atelectasis and mucus plugging - VibraPEP bid - Mucinex 1200mg bid - ambulation as tolerated Cardiac: RV dysfunction - recommend more aggressive diuresis (-500 to -1L negative in 24 hours) - formal TTE Troponin leak, likely demand in the setting of hypoxia - troponin has peaked an normalized, would not order any more - no dynamic EKG findings, but evidence of right sided/respiratory strain - cardiology being consulted re: necessity for [facility] transfer A. Fib - will need anticoagulation long line teamster given elevated CHADS-Vasc score - continue heparin gtt - continue rate control with beta blockade as required for heart rate <110 - cardiology is being consulted Renal: no acute concerns - recommend aggressive diuresis as normal renal function, he likely has 15-20lbs that can be diuresed off before euvolemia - prefer -1L per 24 hour period I&O: Intake & Output 02/15/21 02/16/21 02/17/21 02/18/21 23:59 23:59 23:59 23:59 Intake Total 480 / 480 310.033 / 310.033 Output Total 225 / 225 180 / 180 Balance 255 / 255 130.033 / 130.033 Weight 169.2 kg Daily Fluid Goal:: Negative 1 L GI Nutrition: - ok for normal diet with 2L fluid restriction Date of Last Bowel Movement: 02/17/21 Infectious Disease: No acute concerns currently Hematologic: No acute concerns - on heparin gtt - monitor aPTT while on heparin gtt - will need transition to alternate agent for A.fib eventually Neurologic: No acute concerns Endocrine: No acute concerns - prediabetic, HbA1C 5.8 Lines: PIV, no Marie Prophylaxis: on heparin gtt GI ppx not currently indicated Code Status: Resuscitation Status Full Code Subjective Critical and life-threatening events over the past 24 hours: This is a 76-year-old gentleman with a medical history of obesity, former smoking and hypertension who presented to urgent care with progressively worsening shortness of breath. He was found to have oxygen saturations in the 70s and was ultimately sent to the emergency department at [facility]. In the ED he was found to be saturating between the 60s and 80s on room air which ultimately improved to the 90s on 4 L nasal cannula. He was admitted to the ICU for further care. He underwent a CTA that was negative for PE but was significant for an enlarged right ventricle with IVC reflux of contrast. He had a low BNP (likely falsely reduced in the setting of severe obesity). He also underwent a VBG that found a PvCO2 to be 77. He has likely been suffering with hypercapnic respiratory failure chronically as his serum bicarb is 40 and was as high as 33 in November 2015. There initially was concern for ACS given a small troponin bump. Initially on 02/17/2021 his troponin was 0.07 which then peaked at 0.11 and this morning has returned down to 0.06. He is not having any chest pain currently. He is having shortness of breath however this is much improved with oxygen. He does complain of mucus in his chest. EKG 02/18/21 My impression: low voltage, A. fib, right axis deviation, some non specific ST depression. CTPE 02/17/21 My impression: No PE, mild emphysema, bibasila atelectasis, large RV with reflux of contrast into the IVC Exam Narrative Exam Narrative: POCUS: Difficult views due to body habitus Parasternal short and long axis views obtained however difficult to interpret given air and body habitus. 4 axis view obtained and shows enlarged right ventricle with weakened appearing systolic function. Subxiphoid view obtained and shows again an enlarged right ventricle with decreased RV function. LV function appears to be normal with no visible areas of focal or diffuse hypokinesis. IVC visualized from subxiphoid view and appears large in size with most no respiratory variation. Const General: no acute distress Nutritional Appearance: obese morbidly obese [facility] Head: normocephalic Ears: external ears normal and periauricular adenopathy General nose exam: nasal mucous membranes and turbinates normal Face and sinus: normal facial exam Mouth: moist mucous membranes Teeth and gingiva: fair dentition Eyes General: appearance normal, both eyes and all related structures Pupils: PERRL Neck Neck: normal visual inspection, no lymphadenopathy and no JVD (difficult to visualize given body habitus) Lymphatic: no lymphadenopathy noted Chest Chest: normal inspection of the chest Resp Effort & Inspection: normal respiratory effort and able to speak in complete sentences Auscultation: no rales, no rhonchi and wheezes (intermittent that clears with deep breathing) Cardio Rate: tachycardic Rhythm: abnormal rhythm irregularly irregular Heart Sounds: S1 normal, S2 normal and no murmurs Pulses: radial pulses present bilaterally GI Inspection: normal to inspection Palpation: soft Skin Rashes: rashes noted (stasis dermatitis on bilateral legs) Nails: no clubbing Neuro General: patient alert, patient awake and patient oriented x3 Extrem General: no clubbing, no cyanosis and edema ( 3+ pitting to knee) Laterality: bilateral Psych Mental Status: mental status grossly normal Affect: normal affect Attitude: cooperative Most Recent VS/Results Last Vital Signs Temp 36.6 C 02/18/21 08:48 Pulse 62 02/18/21 08:48 Resp 23 02/18/21 08:48 BP 115/69 02/18/21 08:48 Pulse Ox 93 02/18/21 08:48 Laboratory Results - last 24 hr 02/17/21 02/17/21 02/17/21 11:40 11:40 11:40 WBC 8.63 RBC 4.61 Hgb 14.1 Hct 44.4 MCV 96.3 H MCH 30.6 MCHC 31.8 L RDW 14.1 Plt Count 287 MPV 9.6 Immature Gran % 0.3 Neutrophils % 64.1 Lymphocytes % 24.0 Monocytes % 11.2 Eosinophils % 0.2 Basophils % 0.2 Nucleated RBC % 0 Absolute Neutrophils 5.52 Absolute Lymphocytes 2.07 Absolute Monocytes 0.97 H Absolute Eosinophils 0.02 Absolute Basophils 0.02 APTT D-Dimer ABG Sample Site ABG pH ABG pCO2 ABG pO2 ABG HCO3 ABG Total CO2 ABG O2 Saturation ABG Base Excess VBG pH VBG pCO2 VBG pO2 VBG HCO3 VBG Total CO2 VBG O2 Saturation VBG Base Excess Oxygen Liter Flow FiO2 Sodium 140 Potassium 3.5 Chloride 97 L Carbon Dioxide 39.9 H Anion Gap 3.1 BUN 18 Creatinine 0.8 Estimated GFR/1.73 m2 >= 60.00 Glucose 111 H Hemoglobin A1c Calcium 8.9 Magnesium 2.1 Total Bilirubin 0.6 AST 21 ALT 34 Alkaline Phosphatase 63 Troponin I 0.07 H NT-Pro-B Natriuret Pep 207 Total Protein 7.4 Albumin 3.6 Triglycerides Total Cholesterol LDL Cholesterol, Calc HDL Cholesterol COVID-19 Source SARS-CoV-2 (PCR) 02/17/21 02/17/21 02/17/21 11:40 11:44 14:40 WBC RBC Hgb Hct MCV MCH MCHC RDW Plt Count MPV Immature Gran % Neutrophils % Lymphocytes % Monocytes % Eosinophils % Basophils % Nucleated RBC % Absolute Neutrophils Absolute Lymphocytes Absolute Monocytes Absolute Eosinophils Absolute Basophils APTT D-Dimer 876 H ABG Sample Site ABG pH ABG pCO2 ABG pO2 ABG HCO3 ABG Total CO2 ABG O2 Saturation ABG Base Excess VBG pH VBG pCO2 VBG pO2 VBG HCO3 VBG Total CO2 VBG O2 Saturation VBG Base Excess Oxygen Liter Flow FiO2 Sodium Potassium Chloride Carbon Dioxide Anion Gap BUN Creatinine Estimated GFR/1.73 m2 Glucose Hemoglobin A1c Calcium Magnesium Total Bilirubin AST ALT Alkaline Phosphatase Troponin I 0.11 H* NT-Pro-B Natriuret Pep Total Protein Albumin Triglycerides Total Cholesterol LDL Cholesterol, Calc HDL Cholesterol COVID-19 Source Nasal/Nares SARS-CoV-2 (PCR) Negative 02/17/21 02/17/21 02/17/21 16:02 17:00 17:00 WBC RBC Hgb Hct MCV MCH MCHC RDW Plt Count MPV Immature Gran % Neutrophils % Lymphocytes % Monocytes % Eosinophils % Basophils % Nucleated RBC % Absolute Neutrophils Absolute Lymphocytes Absolute Monocytes Absolute Eosinophils Absolute Basophils APTT 24.0 D-Dimer ABG Sample Site Cancelled ABG pH Cancelled ABG pCO2 Cancelled ABG pO2 Cancelled ABG HCO3 Cancelled ABG Total CO2 Cancelled ABG O2 Saturation Cancelled ABG Base Excess Cancelled VBG pH 7.34 VBG pCO2 77 H* VBG pO2 70 VBG HCO3 41 H VBG Total CO2 37 H VBG O2 Saturation 93 VBG Base Excess > 15 H Oxygen Liter Flow Cancelled FiO2 Cancelled Sodium Potassium Chloride Carbon Dioxide Anion Gap BUN Creatinine Estimated GFR/1.73 m2 Glucose Hemoglobin A1c Calcium Magnesium Total Bilirubin AST ALT Alkaline Phosphatase Troponin I NT-Pro-B Natriuret Pep Total Protein Albumin Triglycerides Total Cholesterol LDL Cholesterol, Calc HDL Cholesterol COVID-19 Source SARS-CoV-2 (PCR) 02/17/21 02/17/21 02/18/21 19:44 22:58 06:30 WBC RBC Hgb Hct MCV MCH MCHC RDW Plt Count MPV Immature Gran % Neutrophils % Lymphocytes % Monocytes % Eosinophils % Basophils % Nucleated RBC % Absolute Neutrophils Absolute Lymphocytes Absolute Monocytes Absolute Eosinophils Absolute Basophils APTT 27.2 D-Dimer ABG Sample Site ABG pH ABG pCO2 ABG pO2 ABG HCO3 ABG Total CO2 ABG O2 Saturation ABG Base Excess VBG pH VBG pCO2 VBG pO2 VBG HCO3 VBG Total CO2 VBG O2 Saturation VBG Base Excess Oxygen Liter Flow FiO2 Sodium 140 Potassium 3.7 Chloride 98 Carbon Dioxide 39.9 H Anion Gap 2.1 L BUN 18 Creatinine 0.7 Estimated GFR/1.73 m2 >= 60.00 Glucose 117 H Hemoglobin A1c Calcium 8.4 L Magnesium 2.3 Total Bilirubin AST ALT Alkaline Phosphatase Troponin I 0.11 H* 0.06 NT-Pro-B Natriuret Pep Total Protein Albumin Triglycerides 85 Total Cholesterol 132 LDL Cholesterol, Calc 69 HDL Cholesterol 46 COVID-19 Source SARS-CoV-2 (PCR) 02/18/21 02/18/21 02/18/21 06:30 06:30 08:55 WBC RBC Hgb Hct MCV MCH MCHC RDW Plt Count MPV Immature Gran % Neutrophils % Lymphocytes % Monocytes % Eosinophils % Basophils % Nucleated RBC % Absolute Neutrophils Absolute Lymphocytes Absolute Monocytes Absolute Eosinophils Absolute Basophils APTT 45.2 H D D-Dimer ABG Sample Site ABG pH ABG pCO2 ABG pO2 ABG HCO3 ABG Total CO2 ABG O2 Saturation ABG Base Excess VBG pH 7.36 VBG pCO2 74 H* VBG pO2 60 VBG HCO3 42 H VBG Total CO2 38 H VBG O2 Saturation 91 VBG Base Excess > 15 H Oxygen Liter Flow FiO2 Sodium Potassium Chloride Carbon Dioxide Anion Gap BUN Creatinine Estimated GFR/1.73 m2 Glucose Hemoglobin A1c 5.8 H Calcium Magnesium Total Bilirubin AST ALT Alkaline Phosphatase Troponin I NT-Pro-B Natriuret Pep Total Protein Albumin Triglycerides Total Cholesterol LDL Cholesterol, Calc HDL Cholesterol COVID-19 Source SARS-CoV-2 (PCR) Review of Systems All systems reviewed & are unremarkable except as noted in HPI and below Cardiovascular Cardiovascular: Denies chest pain, Reports leg ulcers, Reports leg edema and Reports dyspnea Respiratory Respiratory: Reports dyspnea Integumentary/Breasts Skin/Breast: Reports erythema and Reports sores
--- NOTE | 2021-02-18 10:15 | PGE_ITS ---
Date of Service Date of service: 02/18/21 Time of Service: 08:10 Assessment and Plan Assessment and plan (1) Acute on chronic respiratory failure with hypoxia and hypercapnia: Status: Acute Assessment and plan: Multifactorial, due to cor pulmonale, pulmonary hypertension, OHS/?AYAN (never had a sleep study), and possible underlying COPD, not in acute exacerbation. Patient refuses ABG, but CO2 retention component in obvious on VBG. There is a component of fluid overload underrepresented by the patient's pro-BNP due to his obesity. Trial BiPAP, diurese, monitor I/O's/daily weights. Wean O2 as tolerated. (2) Atrial fibrillation with rapid ventricular response: Status: Acute Assessment and plan: Likely related to distorted heart architecture/underlying pulmonary condition/resp. failure. Initiated on lopressor this am - uptitrate this. On anticoagulation with heparin gtt, as per cardiology, and will need eliquis on discharge. Echo pending. (3) Demand ischemia: Status: Acute Assessment and plan: In setting of hypoxemia and probable bouts of Afib at home, felt to be Type 2 NSTEMI, per my conversation with Dr Guaman. There is no indication for urgent/emergent cardiac cath. Echo pending, but assuming there are no wall motion abnormalities, the patient is recommended to have 48 hrs of asa, plavix, heparin gtt and follow up for outpatient stress test. [facility] xfer has been deferred at this time due to above recommendations. (4) Right-sided heart failure: Status: Chronic Assessment and plan: Await formal echocardiogram read. There was clear evidence of hepatopulmonary reflux on CT and dilated RV. This, in addition to the patient's behavior clinically, strongly suggests AYAN/OHS/pulmonary hypertension. He is fluid overloaded as he has a noncompressible IVC. Diuresis intensified. Monitor I/O's, daily weights. Will need BiPAP on discharge. Qualifiers: Heart failure chronicity: acute on chronic Qualified Code(s): I50.813 - Acute on chronic right heart failure (5) Pulmonary hypertension: Status: Acute Assessment and plan: As above (6) Obesity hypoventilation syndrome: Status: Acute Assessment and plan: As above (7) Hypertension: Status: Chronic Assessment and plan: As we are titrating lasix/metoprolol, and because the patient received IV contrast yesterday, I have d/c'ed his ARB/HCTZ combo. Monitor BP while we are diuresing/titrating metoprolol. I have also d/c'ed amlodipine as the patient might require diltiazem and his BP is not requiring an additional agent at this time. (8) Prediabetes: Status: Acute Assessment and plan: A1C 5.8 Carb consistent diet. COnsult diabetes education. (9) Obesity, morbid, BMI 50 or higher: Status: Chronic Assessment and plan: Certainly a predisposition to AYAN/OHS. Will need to work on weight loss with PCP. (10) DVT prophylaxis: Status: Acute Assessment and plan: On therapeutic heparin gtt (11) Discharge planning issues: Status: Acute Assessment and plan: Full code Continues to require hospitalization. [facility] xfer deferred. Total Critical Care Time 40 minutes. Case discussed with Dr Brower and Dr Guaman. Subjective Subjective Interval history since last seen: The patient spent the night on 4L of O2. While asleep, he did desat to low 80s on 4L of O2. He went into rapid Afib with HR up to 160s at 6:30 am. He was asymptomatic and maintained blood pressures. This was treated with IV lopressor 5 mg x1 and initiated on PO lopressor. He denies snoring but has never had a sleep study. States his has never told him he snored. He endorses coughing up sputum every morning. He has a h/o smoking 1 ppd x 30 years, has quite 25 years ago. No dizziness, chest pain, shortness of breath this morning, nausea. Evaluated by Dr Brower this morning who felt based on patient's CT and bedside ultrasound appearance that the patient has dilated RV, pulmonary hypertension, OHS and most likely AYAN and would benefit from BiPAP which we will trial today. He also does appear fluid overloaded and intensifying diuresis was recommended. Exam Narrative Exam Narrative: General: Pleasant obese male, A&Ox3, not dyspneic/tachypneic/cyanotic HEENT: EOMI, MMM Heart: irregularly irregular rhythm, no m/r/g Lungs: very diminished breath sounds B with a slight R basilar expiratory wheeze Abdomen: nondistended Extremities: symmetric edema and chronic venous stasis changes B Objective Last Vital Signs Temp 36.6 C 02/18/21 08:48 Pulse 62 07/27/21 08:48 Resp 23 02/18/21 08:48 BP 115/69 02/18/21 08:48 Pulse Ox 93 02/18/21 08:48 Laboratory Results - last 24 hr 02/17/21 02/17/21 02/17/21 11:40 11:40 11:40 WBC 8.63 RBC 4.61 Hgb 14.1 Hct 44.4 MCV 96.3 H MCH 30.6 MCHC 31.8 L RDW 14.1 Plt Count 287 MPV 9.6 Immature Gran % 0.3 Neutrophils % 64.1 Lymphocytes % 24.0 Monocytes % 11.2 Eosinophils % 0.2 Basophils % 0.2 Nucleated RBC % 0 Absolute Neutrophils 5.52 Absolute Lymphocytes 2.07 Absolute Monocytes 0.97 H Absolute Eosinophils 0.02 Absolute Basophils 0.02 APTT D-Dimer ABG Sample Site ABG pH ABG pCO2 ABG pO2 ABG HCO3 ABG Total CO2 ABG O2 Saturation ABG Base Excess VBG pH VBG pCO2 VBG pO2 VBG HCO3 VBG Total CO2 VBG O2 Saturation VBG Base Excess Oxygen Liter Flow FiO2 Sodium 140 Potassium 3.5 Chloride 97 L Carbon Dioxide 39.9 H Anion Gap 3.1 BUN 18 Creatinine 0.8 Estimated GFR/1.73 m2 >= 60.00 Glucose 111 H Hemoglobin A1c Calcium 8.9 Magnesium 2.1 Total Bilirubin 0.6 AST 21 ALT 34 Alkaline Phosphatase 63 Troponin I 0.07 H NT-Pro-B Natriuret Pep 207 Total Protein 7.4 Albumin 3.6 Triglycerides Total Cholesterol LDL Cholesterol, Calc HDL Cholesterol COVID-19 Source SARS-CoV-2 (PCR) 02/17/21 02/17/21 02/17/21 11:40 11:44 14:40 WBC RBC Hgb Hct MCV MCH MCHC RDW Plt Count MPV Immature Gran % Neutrophils % Lymphocytes % Monocytes % Eosinophils % Basophils % Nucleated RBC % Absolute Neutrophils Absolute Lymphocytes Absolute Monocytes Absolute Eosinophils Absolute Basophils APTT D-Dimer 876 H ABG Sample Site ABG pH ABG pCO2 ABG pO2 ABG HCO3 ABG Total CO2 ABG O2 Saturation ABG Base Excess VBG pH VBG pCO2 VBG pO2 VBG HCO3 VBG Total CO2 VBG O2 Saturation VBG Base Excess Oxygen Liter Flow FiO2 Sodium Potassium Chloride Carbon Dioxide Anion Gap BUN Creatinine Estimated GFR/1.73 m2 Glucose Hemoglobin A1c Calcium Magnesium Total Bilirubin AST ALT Alkaline Phosphatase Troponin I 0.11 H* NT-Pro-B Natriuret Pep Total Protein Albumin Triglycerides Total Cholesterol LDL Cholesterol, Calc HDL Cholesterol COVID-19 Source Nasal/Nares SARS-CoV-2 (PCR) Negative 02/17/21 02/17/21 02/17/21 16:02 17:00 17:00 WBC RBC Hgb Hct MCV MCH MCHC RDW Plt Count MPV Immature Gran % Neutrophils % Lymphocytes % Monocytes % Eosinophils % Basophils % Nucleated RBC % Absolute Neutrophils Absolute Lymphocytes Absolute Monocytes Absolute Eosinophils Absolute Basophils APTT 24.0 D-Dimer ABG Sample Site Cancelled ABG pH Cancelled ABG pCO2 Cancelled ABG pO2 Cancelled ABG HCO3 Cancelled ABG Total CO2 Cancelled ABG O2 Saturation Cancelled ABG Base Excess Cancelled VBG pH 7.34 VBG pCO2 77 H* VBG pO2 70 VBG HCO3 41 H VBG Total CO2 37 H VBG O2 Saturation 93 VBG Base Excess > 15 H Oxygen Liter Flow Cancelled FiO2 Cancelled Sodium Potassium Chloride Carbon Dioxide Anion Gap BUN Creatinine Estimated GFR/1.73 m2 Glucose Hemoglobin A1c Calcium Magnesium Total Bilirubin AST ALT Alkaline Phosphatase Troponin I NT-Pro-B Natriuret Pep Total Protein Albumin Triglycerides Total Cholesterol LDL Cholesterol, Calc HDL Cholesterol COVID-19 Source SARS-CoV-2 (PCR) 02/17/21 02/17/21 02/18/21 19:44 22:58 06:30 WBC RBC Hgb Hct MCV MCH MCHC RDW Plt Count MPV Immature Gran % Neutrophils % Lymphocytes % Monocytes % Eosinophils % Basophils % Nucleated RBC % Absolute Neutrophils Absolute Lymphocytes Absolute Monocytes Absolute Eosinophils Absolute Basophils APTT 27.2 D-Dimer ABG Sample Site ABG pH ABG pCO2 ABG pO2 ABG HCO3 ABG Total CO2 ABG O2 Saturation ABG Base Excess VBG pH VBG pCO2 VBG pO2 VBG HCO3 VBG Total CO2 VBG O2 Saturation VBG Base Excess Oxygen Liter Flow FiO2 Sodium 140 Potassium 3.7 Chloride 98 Carbon Dioxide 39.9 H Anion Gap 2.1 L BUN 18 Creatinine 0.7 Estimated GFR/1.73 m2 >= 60.00 Glucose 117 H Hemoglobin A1c Calcium 8.4 L Magnesium 2.3 Total Bilirubin AST ALT Alkaline Phosphatase Troponin I 0.11 H* 0.06 NT-Pro-B Natriuret Pep Total Protein Albumin Triglycerides 85 Total Cholesterol 132 LDL Cholesterol, Calc 69 HDL Cholesterol 46 COVID-19 Source SARS-CoV-2 (PCR) 02/18/21 02/18/21 02/18/21 06:30 06:30 08:55 WBC RBC Hgb Hct MCV MCH MCHC RDW Plt Count MPV Immature Gran % Neutrophils % Lymphocytes % Monocytes % Eosinophils % Basophils % Nucleated RBC % Absolute Neutrophils Absolute Lymphocytes Absolute Monocytes Absolute Eosinophils Absolute Basophils APTT 45.2 H D D-Dimer ABG Sample Site ABG pH ABG pCO2 ABG pO2 ABG HCO3 ABG Total CO2 ABG O2 Saturation ABG Base Excess VBG pH 7.36 VBG pCO2 74 H* VBG pO2 60 VBG HCO3 42 H VBG Total CO2 38 H VBG O2 Saturation 91 VBG Base Excess > 15 H Oxygen Liter Flow FiO2 Sodium Potassium Chloride Carbon Dioxide Anion Gap BUN Creatinine Estimated GFR/1.73 m2 Glucose Hemoglobin A1c 5.8 H Calcium Magnesium Total Bilirubin AST ALT Alkaline Phosphatase Troponin I NT-Pro-B Natriuret Pep Total Protein Albumin Triglycerides Total Cholesterol LDL Cholesterol, Calc HDL Cholesterol COVID-19 Source SARS-CoV-2 (PCR)
[2021-02-18 12:05] LABS: HCO3 44 mmol/L (22-26); pH 7.41 (7.35-7.45); pO2 76 mmHg (80-105); sO2 95 % (95-98); tCO2 38 mmol/L (23-27)
[2021-02-18 12:11] LABS: BE > 15 mmol/L (-2-3); FIO2L 4 L; Site Right Radial; pCO2 68 mmHg (35-45)
--- NOTE | 2021-02-18 13:00 | RT.EKG_ITS ---
APPROVED REPORT Exam: Resting ECG Reason for Exam: conversion to sinus rhythm Patient Location: I HR:61 bpm ECG Measurements Heart Rate 61 AXIS AR 185 P 1 QRSd 103 QRS 102 QT 398 T 48 QTc 400 Conclusion Sinus rhythm...normal P axis, V-rate 60- 99 Right axis deviation...QRS axis ( 91,269) Low voltage, extremity and precordial leads...extremity<0.5mV, precordial<1.0mV
--- NOTE | 2021-02-18 13:58 | PHA.REVIEW ---
Pharmacy Admission Review - Admission Clinical Review (Last Updated 02/18/21 @ 11:20 by Munira Jerez MD) Prediabetes (Acute) Obesity hypoventilation syndrome (Acute) Discharge planning issues (Acute) Atrial fibrillation with rapid ventricular response (Acute) DVT prophylaxis (Acute) Demand ischemia (Acute) Pulmonary hypertension (Acute) Acute on chronic respiratory failure with hypoxia and hypercapnia (Acute) NSTEMI (non-ST elevated myocardial infarction) (Acute) Acute dyspnea (Acute) Hypoxemia (Acute) lisinopril Adverse Reaction (Verified 02/17/21 11:33) Resuscitation Status Full Code Height 5 ft 9 in Weight 169.2 kg - Renal Dosing Renal Dosing: BUN 18 mg/dL (7-18) 02/18/21 06:30 Creatinine 0.7 mg/dL (0.70-1.30) 02/18/21 06:30 Medications needing adjustments: Reviewed (Crcl over 140 mL/min using adjusted body weight. Current meds okay.) - Anticoagulation Anticoagulation: Hgb 14.1 g/dL (13.5-17.5) 02/17/21 11:40 Hct 44.4 % (40.0-50.0) 02/17/21 11:40 Plt Count 287 10^3/uL (130-400) 02/17/21 11:40 Creatinine 0.7 mg/dL (0.70-1.30) 02/18/21 06:30 DVT Prophylaxis: N/A Therapeutic Anticoagulation: Reviewed Medications: Heparin - Opiate Usage Evaluate Pain Scale/Pains Meds: N/A - Relevant Labs Sodium 140 mmol/L (136-145) 02/18/21 06:30 Potassium 3.7 mmol/L (3.5-5.1) 02/18/21 06:30 Chloride 98 mmol/L (98-107) 02/18/21 06:30 Magnesium 2.3 mg/dL (1.8-2.4) 02/18/21 06:30 Electrolytes, C-Reactive P, ESR: Reviewed - DM Control DM Control: Glucose 117 mg/dL (74-106) H 02/18/21 06:30 Hemoglobin A1c 5.8 % (<5.7) H 02/18/21 06:30 Insulin Dosing: N/A (BG and A1c mildly elevated) - Heart Failure/IN Heart Failure/IN: Troponin I 0.06 ng/mL (<0.06) 02/18/21 06:30 NT-Pro-B Natriuret Pep 207 pg/mL (<300) 02/17/21 11:40 EF%, RATNA's, B-Blockers, Diuretics: Reviewed - BP Control BP Control: Blood Pressure [Right Arm] 106/86 Blood Pressure [Right Arm] 115/69 Blood Pressure [Right Arm] 112/64 Blood Pressure 106/54 Blood Pressure 115/69 Blood Pressure 103/68 Blood Pressure 103/68 Blood Pressure 106/52 Blood Pressure 112/64 Blood Pressure 119/51 If elevated: Reviewed (BP has been up and down some so far this admission. HR has been elevated most of today. Scheduled PO metoprolol tartrate and PRN IVP metoprolol ordered.) - Qtc Review If Elevated: Reviewed (QTc this morning 480, no report yet for EKG done this afternoon) - IV to PO Switch IV Medications: Reviewed - Home Meds Home Med List reviewed: Reviewed Relevent Home Meds Not ordered & why?: amlodipine, glucosamine, losartan, hydrochlorothiazide, multivitamin, vitamin E - Current meds Current Medication Order Review: Intervened (Discontinued DI meds that had already been given.) - Comments Comments/Follow Ups: Watch BP, HR, BG, labs and for med changes.
--- NOTE | 2021-02-18 18:49 | RESPIRATORY ---
per Dr. Brower pt should use bipap during his stay with O2 to keep sats at or above 90%, titrating for comfort, goal settings of 18/8. When pt has returned to baseline and is becoming ready for discharge he will need an o2 evaluation, a pft, and an AM ABG (as soon as he wakes up to show an increase in Co2.) Will continue to work with Lori from [facility] who is assisting in new qualifications.
--- NOTE | 2021-02-18 19:54 | NUR.NOTE ---
pt was asked if he would try the bipap machine and he absolutely refused, stating he was claustrophobic and it puts out too much air. He was then asked if he would try a sedative and then the bipap but he refused this also.
[2021-02-19] VITALS (90 sets, daily range): BP systolic 107–150; BP diastolic 54–81; PULSE 52–132; RESP 12–29; TEMP 36.7–37.3; O2SAT 81–98
--- NOTE | 2021-02-19 | DI.US_ITS ---
Exam(s) US RENAL EXAM: US RENAL CLINICAL HISTORY: hematuria TECHNIQUE: Ultrasound of both kidneys performed using standard protocol. COMPARISON: US US renal from 01/17/2019 US US ECHOCARDIOGRAM from 02/18/2021 FINDINGS: Both kidneys measure approximately 12.5 cm length and exhibit normal cortical thickness and corticome dullary differentiation. There is a midpole parapelvic cyst in the left kidney again noted which geo sures 2.7 x 3 cm, unchanged from 2019. No new solid renal masses. No calculi nor hydronephrosis nor perinephric fluid. URINARY BLADDER: Prevoid volume is 336 cc Postvoid volume is 97 cc Apparently not able to adequately visualize the prostate gland on this study. No evidence of bladder mass nor diverticuli. Ureterovesical jets: Not identified. Apparently patient has not had fluid intake today. IMPRESSION: 1. No new significant ultrasound findings in the kidneys. Stable 3 cm central parapelvic cysts in l eft kidney again noted. No solid renal masses nor calculi nor hydronephrosis. 2. Postvoid volume is increased with 97 cc remaining urine in the urinary bladder post micturition. No bladder diverticuli evident. DATA REPOSITORY:
[2021-02-19] MEDS: Metoprolol 12.5 MG TAB PO ×4 (00:37→17:25)
[2021-02-19 07:03] LABS: PTT Activated 38.8 sec (21.0-27.5)
--- NOTE | 2021-02-19 08:03 | W.PM.PROGNOT ---
Date of Service Date of service: 02/19/21 Time of Service: 14:43 Assessment and Plan Assessment and plan (1) Acute on chronic respiratory failure with hypoxia and hypercapnia: Status: Acute Assessment and plan: Multifactorial, due to cor pulmonale, pulmonary hypertension, OHS/?AYAN (never had a sleep study), and possible underlying COPD, not in acute exacerbation. Will trial BiPAP again tonight. May require anxiolytics to tolerate it. Diurese - changed to lasix gtt. Monitor I/O's/daily weights. Wean O2 as tolerated. (2) Right-sided heart failure: Status: Chronic Assessment and plan: RV not well visualized on formal echo, and RVSP could not be assessed. There was clear evidence of hepatopulmonary reflux on CT and dilated RV. This, in addition to the patient's behavior clinically, strongly suggests AYAN/OHS/pulmonary hypertension. Continue diuresis - lasix gtt today with target of -1L/24 hrs. BiPAP tonight. Monitor I/O's, daily weights. Will need BiPAP on discharge. Qualifiers: Heart failure chronicity: acute on chronic Qualified Code(s): I50.813 - Acute on chronic right heart failure (3) Atrial fibrillation with rapid ventricular response: Status: Resolved Assessment and plan: Converted to NSR. Likely related to distorted heart architecture/underlying pulmonary condition/resp. failure. Tolerating current doses of lopressor - would convert to long acting. Discussed case with pharmacy and cardiology: though we do not have anti -Xa testing available at [facility], there are new studies (Antony trial) which looked at DOACS in the obese population and found them to be effective and superior to warfarin. With this information, I feel comfortable converting the patient to eliquis tonight after 48 hrs of heparin gtt. Echo w/o obvious intracardiac thrombi (TTE). (4) Demand ischemia: Status: Acute Assessment and plan: In setting of hypoxemia and probable bouts of Afib at home, felt to be Type 2 NSTEMI, per my conversation with Dr Guaman. There is no indication for urgent/emergent cardiac cath. No obvious wall motion abnormalities on echo. Completing 48 hrs of asa, plavix, heparin gtt tonight. Following this, starting eliquis, d/c plavix, continue baby asa. Will need outpatient MPI. [facility] xfer has been deferred at this time due to above recommendations. (5) Pulmonary hypertension: Status: Acute Assessment and plan: As above (6) Obesity hypoventilation syndrome: Status: Acute Assessment and plan: As above (7) Penile bleeding: Status: Acute Assessment and plan: Minimal. Await Renal US read. Consider urology c/s. (8) Hypertension: Status: Chronic Assessment and plan: Convert lopressor to toprol XL. I have also d/c'ed amlodipine/HCTZ/ARB on discharge, but some of these may have to be reintroduced depending on the blood pressures post diuresis. (9) Prediabetes: Status: Acute Assessment and plan: A1C 5.8 Carb consistent diet. DM educator consulted; awaiting recommendations. (10) Obesity, morbid, BMI 50 or higher: Status: Chronic Assessment and plan: Certainly a predisposition to AYAN/OHS. Will need to work on weight loss with PCP/nutritonist. I discussed this with patient and . (11) DVT prophylaxis: Status: Acute Assessment and plan: On therapeutic heparin gtt, converting to eliquis (12) Discharge planning issues: Status: Acute Assessment and plan: Full code Continues to require hospitalization. [facility] xfer deferred. Total Critical Care Time, including detailed explanation to patient's - 60 minutes. Case discussed with Dr Brower. Subjective Subjective Interval history since last seen: Mr Arndt had a hard time tolerating BiPAP last night - stated pressure were too much and he felt claustrophobic. He is willing to try it again tonight. He is also possibly interested in nasal pillows. Denies dizziness, chest pain, shortness of breath, nausea. Nursing noted blood at the meatus and in the urine. The patient denies trauma to penis and states that it love. It happened once before a couple of years ago and was self-limited. O2 at 4L overnight - O2 sats in mid-90s. VSS. Bigeminy overnight, in NSR all day today. No Afib overnight. Converted to NSR yesterday. On lasix gtt to target -1L/24 hrs. Exam Narrative Exam Narrative: General: Pleasant obese male, A&Ox3, not dyspneic/tachypneic/cyanotic laying at about 30 degrees in bed HEENT: EOMI, MMM Heart: RRR, no m/r/g Lungs: improved aeration at B bases, no wheezing Abdomen: soft, nontender, nondistended Extremities: symmetric edema and chronic venous stasis changes B, unchanged from yesterday Objective Last Vital Signs Temp 37.2 C 02/19/21 03:25 Pulse 61 02/19/21 06:00 Resp 20 02/19/21 06:50 BP 141/61 H 02/19/21 06:00 Pulse Ox 95 02/19/21 06:50 Laboratory Results - last 24 hr 02/18/21 02/18/21 02/18/21 06:30 06:30 08:55 APTT ABG Sample Site ABG pH ABG pCO2 ABG pO2 ABG HCO3 ABG Total CO2 ABG O2 Saturation ABG Base Excess VBG pH 7.36 VBG pCO2 74 H* VBG pO2 60 VBG HCO3 42 H VBG Total CO2 38 H VBG O2 Saturation 91 VBG Base Excess > 15 H Oxygen Liter Flow Sodium 140 Potassium 3.7 Chloride 98 Carbon Dioxide 39.9 H Anion Gap 2.1 L BUN 18 Creatinine 0.7 Estimated GFR/1.73 m2 >= 60.00 Glucose 117 H Hemoglobin A1c 5.8 H Calcium 8.4 L Magnesium 2.3 Troponin I 0.06 Triglycerides 85 Total Cholesterol 132 LDL Cholesterol, Calc 69 HDL Cholesterol 46 02/18/21 02/19/21 12:00 06:14 APTT 38.8 H ABG Sample Site Right Radial ABG pH 7.41 ABG pCO2 68 H* ABG pO2 76 L ABG HCO3 44 H ABG Total CO2 38 H ABG O2 Saturation 95 ABG Base Excess > 15 H VBG pH VBG pCO2 VBG pO2 VBG HCO3 VBG Total CO2 VBG O2 Saturation VBG Base Excess Oxygen Liter Flow 4 Sodium Potassium Chloride Carbon Dioxide Anion Gap BUN Creatinine Estimated GFR/1.73 m2 Glucose Hemoglobin A1c Calcium Magnesium Troponin I Triglycerides Total Cholesterol LDL Cholesterol, Calc HDL Cholesterol
[2021-02-19 08:08] LABS: Anion Gap 0.7 mmol/L (3-11); BUN 19 mg/dL (7-18); CO2 42.3 mmol/L (21.0-32.0); CREATININE 0.7 mg/dL (0.70-1.30); Calcium 8.2 mg/dL (8.5-10.1); Chloride 98 mmol/L (98-107); Glucose 114 mg/dL (74-106); Magnesium 2.2 mg/dL (1.8-2.4); Potassium 3.9 mmol/L (3.5-5.1); Sodium 141 mmol/L (136-145)
[2021-02-19] MEDS: guaiFENesin 600 MG TABCR 1200 MG PO ×2 (08:47→19:44)
[2021-02-19] MEDS: Aspirin E.C. 81 MG TABEC PO (08:48)
[2021-02-19] MEDS: Clopidogrel 75 MG TAB PO (08:48)
[2021-02-19] MEDS: Normal Saline Flush 10 ML SYR IVP (08:59)
--- NOTE | 2021-02-19 09:47 | W.PULMCC ---
General Date of Service Date of service: 02/19/21 Time of Service: 08:00 Reason for Admission to ICU: Hypoxic and hypercapnic respiratory failure Assessment and Plan Assessment and plan (1) Acute on chronic respiratory failure with hypoxia and hypercapnia: Status: Acute (2) Pulmonary hypertension: Status: Acute (3) Right-sided heart failure: Status: Chronic Qualifiers: Heart failure chronicity: acute on chronic Qualified Code(s): I50.813 - Acute on chronic right heart failure (4) Demand ischemia: Status: Acute Assessment and plan: This is a 76-year-old gentleman with a medical history of obesity, former smoking and hypertension. He has evidence of chronic right-sided heart failure and probable pulmonary hypertension likely due to obesity hypoventilatory syndrome and possibly some degree of obstructive lung disease contributing. He should be wearing noninvasive ventilation at night and with naps in order to prevent further CO2 retention and to help with his right-sided heart failure. His bedside ultrasound that I performed this did show an enlarged right ventricle with what appeared to be an adequate systolic function, although on formal TTE the RV was not well visualized.. His IVC was also plump with minimal respiratory variation. In order to improve his respiratory status effective diuresis as well as noninvasive ventilatory support. Recommendations Pulmonary: Hypoxic and Hypercapnic respiratory failure - continue supplemental oxygen as needed for O2 sat goal of 90% - BiPAP at night and with naps - recommend starting pressures: 10/5 with FiO2 to support a O2 sat of 90% - RT will have to work with him on comfort - recommend low dose Xanax to help with his BiPAP compliance - we will work on qualifying him for home NIV (BiPAP or AVAPS), in order for this to occur the following diagnostics need to occur once he is out of the ICU and closer to his baseline: - ABG while awake on prescribed O2 - inpatient spirometry - ABG done first thing after waking up - recommend Duonebs tid standing as had significant wheezing this morning (may still reflect volume overloaded state, but may still help) Atelectasis and mucus plugging - VibraPEP bid - Mucinex 1200mg bid - ambulation as tolerated - out of bed to chair today Cardiac: RV dysfunction - recommend more aggressive diuresis (-1L negative in 24 hours) - hospitalist team to try Lasix drip, if this is not adequate for diuresis needed, would recommend 120mg IV Lasix and 500 mg Diuril with repeat dosing q8 as needed for achieving fluid balance goal Troponin leak, likely demand in the setting of hypoxia - troponin has peaked an normalized, would not order any more - no dynamic EKG findings, but evidence of right sided/respiratory strain A. 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 - continue heparin gtt - continue rate control with beta blockade as required for heart rate <110 Renal: no acute concerns - recommend aggressive diuresis as normal renal function, he likely has 15-20lbs that can be diuresed off before euvolemia - prefer -1L per 24 hour period I&O: Intake & Output 02/16/21 02/17/21 02/18/21 02/19/21 23:59 23:59 23:59 23:59 Intake Total 480 / 480 1357.517 / 1357.517 361.667 / 361.667 Output Total 225 / 225 1865 / 1865 300 / 300 Balance 255 / 255 -507.483 / -507.483 61.667 / 61.667 Weight 169.2 kg Daily Fluid Goal:: -1 to -2 L in 24 hours GI Nutrition: ok for normal diet, 2L fluid restriction Date of Last Bowel Movement: 02/18/21 Infectious Disease: No acute concerns Hematologic: No acute concerns - on heparin gtt - monitor aPTT while on heparin gtt - will need transition to alternate agent for A.fib eventually Neurologic: No acute concerns Endocrine: No acute concerns - prediabetic, HbA1C 5.8 Lines: PIV, no Marie - may be indicated depending on UOP Prophylaxis: on heparin gtt GI ppx not currently indicated Code Status: Resuscitation Status Full Code Subjective Critical and life-threatening events over the past 24 hours: He remained on 4 L cannula. He refused to try the BiPAP overnight as he states that the pressure was too high. I initially believed that the pressure was at 18/8, however was told by respiratory therapy this morning and even at pressures of 10/5 he felt the pressure was too high. He was only -300 cc in the last 24 hours Exam Narrative Exam Narrative: 02/18/21 POCUS: Difficult views due to body habitus Parasternal short and long axis views obtained however difficult to interpret given air and body habitus. 4 axis view obtained and shows enlarged right ventricle with weakened appearing systolic function. Subxiphoid view obtained and shows again an enlarged right ventricle with decreased RV function. LV function appears to be normal with no visible areas of focal or diffuse hypokinesis. IVC visualized from subxiphoid view and appears large in size with most no respiratory variation. Const General: no acute distress Nutritional Appearance: obese morbidly obese [facility] Head: normocephalic Ears: external ears normal and periauricular adenopathy General nose exam: nasal mucous membranes and turbinates normal Face and sinus: normal facial exam Mouth: moist mucous membranes Teeth and gingiva: fair dentition Eyes General: appearance normal, both eyes and all related structures Pupils: PERRL Neck Neck: normal visual inspection, no lymphadenopathy and no JVD (difficult to visualize given body habitus) Lymphatic: no lymphadenopathy noted Chest Chest: normal inspection of the chest Resp Effort & Inspection: normal respiratory effort and able to speak in complete sentences Auscultation: no rales, no rhonchi and wheezes expiratory wheezes, lower bilaterally and upper bilaterally Cardio Rate: tachycardic Rhythm: abnormal rhythm irregularly irregular Heart Sounds: S1 normal, S2 normal and no murmurs Pulses: radial pulses present bilaterally GI Inspection: normal to inspection Palpation: soft Skin Rashes: rashes noted (stasis dermatitis on bilateral legs) Nails: no clubbing Neuro General: patient alert, patient awake and patient oriented x3 Extrem General: no clubbing, no cyanosis and edema ( 3+ pitting to knee) Laterality: bilateral Psych Mental Status: mental status grossly normal Affect: normal affect Attitude: cooperative Most Recent VS/Results Last Vital Signs Temp 37.2 C 02/19/21 03:25 Pulse 53 L 02/19/21 08:00 Resp 19 02/19/21 09:30 BP 137/55 L 02/19/21 08:00 Pulse Ox 93 02/19/21 09:20 Laboratory Results - last 24 hr 02/18/21 02/19/21 02/19/21 12:00 06:14 06:14 APTT 38.8 H ABG Sample Site Right Radial ABG pH 7.41 ABG pCO2 68 H* ABG pO2 76 L ABG HCO3 44 H ABG Total CO2 38 H ABG O2 Saturation 95 ABG Base Excess > 15 H Oxygen Liter Flow 4 Sodium 141 Potassium 3.9 Chloride 98 Carbon Dioxide 42.3 H Anion Gap 0.7 L BUN 19 H Creatinine 0.7 Estimated GFR/1.73 m2 >= 60.00 Glucose 114 H Calcium 8.2 L Magnesium 2.2 Review of Systems All systems reviewed & are unremarkable except as noted in HPI and below Cardiovascular Cardiovascular: Denies chest pain, Reports leg ulcers, Reports leg edema and Reports dyspnea Respiratory Respiratory: Reports dyspnea Integumentary/Breasts Skin/Breast: Reports erythema and Reports sores
[2021-02-19] MEDS: Furosemide 100 MG/10 ML VIAL 80 MG IVP (10:56)
[2021-02-19 14:12] LABS: Bilirubin Negative (Negative); Blood Moderate (Negative); Clarity Clear (Clear); Glucose Negative (Negative); Ketones Negative (Negative); Leukocyte Esterase Negative (Negative); Nitrite Negative (Negative); Urobilinogen 0.2 EU/dL (Up TO 0.2)
[2021-02-19 14:22] LABS: Bacteria Negative HPF (Negative); C & S Indicated? C&S Done As Ordered; Crystals Negative HPF (Negative); Epithelial Cells Negative HPF (Negative); Mucus Trace (Negative); RBC 20-50 HPF (0-2); WBC Negative HPF (0-5)
--- NOTE | 2021-02-19 15:33 | PDOC.CMPRO ---
Care Management Progress Note S/O: Murray remains acute in the ICU at this time. Per provider, he was unable to to tolerate BIPAP last night and will be attempted again tonight. Pulmonary consulted and continues to follow. CM continues to follow as well. A: 76 year old male admitted to [facility] 02/18/21 for NSTEMI P: Murray remains in the ICU, anticipate he will be evaluated for home O2 needs prior to discharge. Per MD, anticipate new prescription for Eliquis; CM will support prescription process. CM continues to follow.
[2021-02-19 15:43] LABS: PTT Activated 45.9 sec (21.0-27.5)
[2021-02-19] MEDS: Apixaban 5 MG TAB PO (17:09)
[2021-02-20] VITALS (56 sets, daily range): BP systolic 104–141; BP diastolic 45–107; PULSE 49–149; RESP 12–28; TEMP 35.6–36.8; O2SAT 85–97
--- NOTE | 2021-02-20 05:15 | RT.EKG_ITS ---
APPROVED REPORT Exam: Resting ECG Reason for Exam: afib 130-150 Patient Location: I HR:144 bpm ECG Measurements Heart Rate 144 AXIS LA [id number] P [id number] QRSd 97 QRS 95 QT 302 T 4 QTc 469 Conclusion Atrial fibrillation...V-rate 100-169, irreg A-activity Right axis deviation...QRS axis ( 93,928)
[2021-02-20] MEDS: Metoprolol 5 MG/5 ML VIAL IVP (05:49)
--- NOTE | 2021-02-20 06:07 | NUR.NOTE ---
0500-pt went into a fib flutter after having some sleep apnea. EKG done. Metoprolol 5 mg IV given as ordered.HR lowered to one teeens. remains in afib.
[2021-02-20] MEDS: Metoprolol 12.5 MG TAB PO ×2 (06:43)
[2021-02-20 07:27] LABS: BUN 16 mg/dL (7-18); CREATININE 0.7 mg/dL (0.70-1.30); Calcium 8.3 mg/dL (8.5-10.1); Chloride 94 mmol/L (98-107); Glucose 102 mg/dL (74-106); Potassium 3.1 mmol/L (3.5-5.1); Sodium 142 mmol/L (136-145)
[2021-02-20 07:50] LABS: CO2 > 45.0 mmol/L (21.0-32.0)
--- NOTE | 2021-02-20 08:03 | PGE_ITS ---
Date of Service Date of service: 02/20/21 Time of Service: 12:38 Assessment and Plan Assessment and plan (1) Acute on chronic respiratory failure with hypoxia and hypercapnia: Status: Acute Assessment and plan: Multifactorial, due to cor pulmonale, pulmonary hypertension, OHS/?AYAN (never had a sleep study), and possible underlying COPD, not in acute exacerbation. The patient tolerated BiPAP x 5 hrs last night. He will likely need a different type of facial appliance on discharge. Diuresis changed from lasix drip to lasix boluses. Monitor I/O's/daily weights. Wean O2 as tolerated. Transfer out of the ICU. (2) Right-sided heart failure: Status: Chronic Assessment and plan: RV not well visualized on formal echo, and RVSP could not be assessed. There was clear evidence of hepatopulmonary reflux on CT and dilated RV. This, in addition to the patient's behavior clinically, strongly suggests AYAN/OHS/pulmonary hypertension. Continue diuresis - as above - switched to IV lasix boluses. Trial BiPAP again tonight. Monitor I/O's, daily weights. Will need BiPAP on discharge. Qualifiers: Heart failure chronicity: acute on chronic Qualified Code(s): I50.813 - Acute on chronic right heart failure (3) Atrial fibrillation with rapid ventricular response: Status: Resolved Assessment and plan: Paroxysmal Afib. Today he is back in Afib and rate controlled. Continue metoprolol; initiated on eliquis. Likely related to distorted heart architecture/underlying pulmonary condition/resp. failure. Discussed case with pharmacy and cardiology: though we do not have anti -Xa testing available at [facility], there are new studies (Antony trial) which looked at DOACS in the obese population and found them to be effective and superior to warfarin. With this information, I feel comfortable prescribing eliquis on discharge. Echo w/o obvious intracardiac thrombi (TTE). (4) Demand ischemia: Status: Acute Assessment and plan: In setting of hypoxemia and probable bouts of Afib at home, felt to be Type 2 NSTEMI, per cardiology and pulmonology. There is no indication for urgent/emergent cardiac cath. No obvious wall motion abnormalities on echo. Completed 48 hrs of asa, plavix, heparin gtt. Continue baby asa in combination with eliquis. Will need outpatient MPI. [facility] xfer has been deferred at this time due to above recommendations. (5) Pulmonary hypertension: Status: Acute Assessment and plan: As above (6) Obesity hypoventilation syndrome: Status: Acute Assessment and plan: As above (7) Penile bleeding: Status: Resolved Assessment and plan: Minimal. No pathology on renal US to explain bleeding. Consult urology c/s. (8) Hypertension: Status: Chronic Assessment and plan: Continue toprol XL 50 mg daily. BPs adequately controlled so far. I d/c'ed amlodipine/HCTZ/ARB on this admission, but some of these may have to be reintroduced depending on the blood pressures post diuresis. (9) Prediabetes: Status: Acute Assessment and plan: A1C 5.8 Carb consistent diet. DM educator consulted; awaiting recommendations. (10) Obesity, morbid, BMI 50 or higher: Status: Chronic Assessment and plan: Certainly a predisposition to AYAN/OHS. Will need to work on weight loss with PCP/nutritonist. I discussed this with patient and . (11) DVT prophylaxis: Status: Acute Assessment and plan: On therapeutic eliquis (12) Discharge planning issues: Status: Acute Assessment and plan: Full code Continues to require hospitalization. [facility] xfer deferred. Transfer out of ICU. Subjective Subjective Interval history since last seen: Tolerated BiPAP for 5 hrs last night. Was taken off due to a leak which was making noise. 5 am: converted back Afib, HR 67. -4.6L in 24 hrs on lasix gtt. On NC at 3.5L of O2 this am. Still has not sat in a chair or walked today. Exam Narrative Exam Narrative: General: Pleasant obese male, A&Ox3, not dyspneic/tachypneic/cyanotic laying flat in bed. Napping off BiPAP. HEENT: EOMI, MMM Heart: RRR, no m/r/g Lungs: improved aeration at B bases, no wheezing Abdomen: soft, nontender, nondistended Extremities: symmetric edema and chronic venous stasis changes B, slight improvement in edema since yesterday Objective Last Vital Signs Temp 35.9 C L 02/20/21 07:51 Pulse 67 02/20/21 07:51 Resp 27 H 02/20/21 07:51 BP 114/57 L 02/20/21 07:51 Pulse Ox 94 02/20/21 07:51 Laboratory Results - last 24 hr 02/19/21 02/19/21 02/19/21 06:14 11:45 15:25 APTT 45.9 H Sodium 141 Potassium 3.9 Chloride 98 Carbon Dioxide 42.3 H Anion Gap 0.7 L BUN 19 H Creatinine 0.7 Estimated GFR/1.73 m2 >= 60.00 Glucose 114 H Calcium 8.2 L Magnesium 2.2 Urine Color Yellow Urine Clarity Clear Urine pH 7.0 Ur Specific [place] 1.020 Urine Protein Negative Urine Ketones Negative Urine Blood Moderate H Urine Nitrite Negative Urine Bilirubin Negative Urine Urobilinogen 0.2 Ur Leukocyte Esterase Negative Urine RBC 20-50 H Urine WBC Negative Ur Epithelial Cells Negative Urine Crystals Negative Urine Bacteria Negative Urine Mucus Trace Ur Culture Indicated? C&S Done As Ordered Urine Glucose Negative 02/20/21 06:22 APTT Sodium 142 Potassium 3.1 L Chloride 94 L Carbon Dioxide > 45.0 H Anion Gap BUN 16 Creatinine 0.7 Estimated GFR/1.73 m2 >= 60.00 Glucose 102 Calcium 8.3 L Magnesium 2.0 Urine Color Urine Clarity Urine pH Ur Specific [place] Urine Protein Urine Ketones Urine Blood Urine Nitrite Urine Bilirubin Urine Urobilinogen Ur Leukocyte Esterase Urine RBC Urine WBC Ur Epithelial Cells Urine Crystals Urine Bacteria Urine Mucus Ur Culture Indicated? Urine Glucose
--- NOTE | 2021-02-20 08:38 | CMPROGNOTE_ITS ---
- If Service Date Differs Date of service: 02/20/21 Time of Service: 08:38 Care Management Progress Note S/O: Murray remains acute, but will be downgraded to a medical/surgical patient today. Pulmonary consulted and continues to follow. CM continues to follow as well. A: 76 year old male admitted to [facility] 02/18/21 for NSTEMI P: Murray remains in the ICU, anticipate he will be evaluated for home O2 needs prior to discharge. Per MD, anticipate new prescription for Eliquis; CM will support prescription process. CM continues to follow.
[2021-02-20] MEDS: Apixaban 5 MG TAB PO ×2 (09:16→20:28)
[2021-02-20] MEDS: Aspirin E.C. 81 MG TABEC PO (09:16)
[2021-02-20] MEDS: guaiFENesin 600 MG TABCR 1200 MG PO ×2 (09:17→20:28)
[2021-02-20] MEDS: Metoprolol CR 50 MG TABCR PO (09:17)
[2021-02-20] MEDS: Potassium Chloride 20 MEQ TABCR 40 MEQ PO (09:18)
--- NOTE | 2021-02-20 12:12 | NUR.NOTE ---
Patient is sound asleep.Nursing Note:
--- NOTE | 2021-02-20 13:56 | W.UROLOGYCON ---
Date of service: 02/20/21 Time of Service: 15:02 Assessment and Plan Assessment and plan (1) Penile bleeding: Status: Resolved Assessment and plan: Normally, we would recommend a cystoscopy and retrograde pyelogram to complete his hematuria work-up. With his other acute issues, I certainly do not feel that any urologic procedure needs to be done emergently. As long as he is not having clot retention, I think I would prefer to allow him to recover from his acute medical issues and recheck a urine sample a month or so after discharge. If the hematuria is still present, we can then have a discussion regarding cystoscopy. With the patient's medical history and his BMI, I am not sure that he would be a candidate for anesthesia at our facility. We may need to consider a cystoscopy in the office if he wants to have any testing done locally. History of Present Illness History of Present Illness Chief Complaint: Gross hematuria Narrative: This is a 76 year old man who is hospitalized with dyspnea and atrial Fibrillation. He has been on anticoagulants. Yesterday, he noted blood from the urethra with each void. He denies any dysuria. The bleeding is no longer visible today. He is unaware of any previous history of kidney stones or urinary tract infections. He has not had any urologic surgeries. In reviewing his records, there is a history of gross hematuria back in 2019. The hematuria is referenced in one of his primary care visits. A renal ultrasound was obtained at that time and a simple left renal cyst was identified. It was indicated that a urology referral was being placed, but I do not have access to any urologic evaluation or records. The patient tells me that since the hematuria resolved on its own, the urology referral never occurred and he never had a cystoscopy. Review of Systems Constitutional Constitutional: Denies chills, Denies fever(s) and Reports snoring Cardiovascular Cardiovascular: Denies chest pain, Reports irregular heart rhythm, Reports dyspnea and Reports dyspnea on exertion Respiratory Respiratory: Reports dyspnea, Reports dyspnea on exertion and Reports snoring Gastrointestinal Gastrointestinal: Denies nausea and Denies vomiting Neurologic Neurologic: Denies seizure-like activity Hematologic/Lymphatic Hematologic/Lymphatic: Reports easy bleeding and Reports easy bruising [facility] Medical History (Updated 02/20/21 @ 12:47 by Munira Jerez MD) Obesity, morbid, BMI 50 or higher Surgical History Tonsillectomy and adenoidectomy Family History Mother , age 70+ Heart disease Stroke Cerebral hemorrhage Father , age 70+ Heart disease Stroke Sepsis pancreas Brother Heart disease Stroke Brother Heart disease Stroke Brother , age 58 No problems noted. Son No problems noted. Daughter No problems noted. Social History Smoking/Tobacco Use Status: Former Tobacco Use Tobacco: How many years used: 13 Quit status: has quit before Smoking risk assessment performed?: Yes Alcohol Intake: current Alcohol Intake frequency: holidays/special occasions only Drug use: Never Substance use type: does not use Caregiver/Support person: No Household members: spouse Housing: house Communication Needs: Hard of Hearing and Corrective Lenses Do you need help understanding health information?: Never Pets and animals: Yes Pets and animals: dog(s) Sexually active: No Do you think of yourself as: straight/heterosexual Current gender identity: male What is your relationship status?: How often do you talk on the phone with friends or family?: once per week How often do you get together with friends or relatives?: once per week How often do you attend sikhism or congregational services?: 1-3 times per year Do you belong to any clubs or organized social groups?: no Panel score (0-1 are the most socially isolated patients): 1 What type of physical activity do you participate in: walking Duration: < 15 minutes/day Frequency: 3-4 times per week Maribel/Buddhism: Adventist Special maribel needs: No Seatbelt use: always Helmet use: Yes Helmet use: always Drive intox or ride w/intox medical van driver: No Do you feel safe at home: Yes Do you feel safe in your relationship?: Yes Exam Narrative Exam Narrative: He is in no obvious distress. He is cooperative. His vital signs are documented elsewhere He is obese He is awake and alert. His BMI is 55 I reviewed his renal US from 2019 and from today. In both cases, thee only finding is a left renal cyst. Results Last Vital Signs Temp 36.3 C L 02/20/21 13:06 Pulse 73 02/20/21 13:06 Resp 20 02/20/21 13:06 BP 107/67 02/20/21 13:18 Pulse Ox 93 02/20/21 13:06 Labs Result diagrams: 02/17/21 11:40 02/20/21 06:22 Labs: Laboratory Results - last 24 hr 02/19/21 02/19/21 02/20/21 11:45 15:25 06:22 APTT 45.9 H Sodium 142 Potassium 3.1 L Chloride 94 L Carbon Dioxide > 45.0 H Anion Gap BUN 16 Creatinine 0.7 Estimated GFR/1.73 m2 >= 60.00 Glucose 102 Calcium 8.3 L Magnesium 2.0 Urine Color Yellow Urine Clarity Clear Urine pH 7.0 Ur Specific [place] 1.020 Urine Protein Negative Urine Ketones Negative Urine Blood Moderate H Urine Nitrite Negative Urine Bilirubin Negative Urine Urobilinogen 0.2 Ur Leukocyte Esterase Negative Urine RBC 20-50 H Urine WBC Negative Ur Epithelial Cells Negative Urine Crystals Negative Urine Bacteria Negative Urine Mucus Trace Ur Culture Indicated? C&S Done As Ordered Urine Glucose Negative
--- NOTE | 2021-02-20 14:45 | NUR.NOTE ---
in room visiting.Nursing Note:
[2021-02-20] MEDS: Furosemide 20 MG/2 ML VIAL IVP (15:53)
[2021-02-20] MEDS: Acetaminophen 325 MG TAB 650 MG PO (15:58)
[2021-02-20] MEDS: Normal Saline Flush 10 ML SYR IVP ×2 (15:58→20:28)
[2021-02-20] MEDS: Melatonin 3 MG TAB PO (20:28)
[2021-02-20] MEDS: LORazepam 0.5 MG TAB PO (20:28)
[2021-02-20] MEDS: acetaZOLAMIDE 250 MG TAB 500 MG PO (20:28)
[2021-02-21] VITALS (22 sets, daily range): BP systolic 125–141; BP diastolic 66–69; PULSE 48–69; RESP 12–22; TEMP 36–36.3; O2SAT 83–99
--- NOTE | 2021-02-21 06:28 | NUR.NOTE ---
0630 pt slept well all shift with biipap on. o2 sats remained in upper 90's. Placed on nasal cannula @ 3.5 L at 0620. Satting at 97%.AM labs drawn.
[2021-02-21 07:07] LABS: Anion Gap 1.5 mmol/L (3-11); BUN 20 mg/dL (7-18); CO2 39.5 mmol/L (21.0-32.0); CREATININE 0.7 mg/dL (0.70-1.30); Calcium 9.3 mg/dL (8.5-10.1); Chloride 98 mmol/L (98-107); Glucose 114 mg/dL (74-106); Magnesium 2.6 mg/dL (1.8-2.4); Potassium 3.4 mmol/L (3.5-5.1); Sodium 139 mmol/L (136-145)
[2021-02-21] MEDS: Apixaban 5 MG TAB PO (08:18)
[2021-02-21] MEDS: acetaZOLAMIDE 250 MG TAB 500 MG PO (08:18)
[2021-02-21] MEDS: Furosemide 40 MG TAB PO ×2 (08:18→16:01)
[2021-02-21] MEDS: Metoprolol CR 50 MG TABCR PO (08:18)
[2021-02-21] MEDS: Vitamin E 400 UNITS CAP 800 UNITS PO (08:19)
[2021-02-21] MEDS: Potassium Chloride 20 MEQ TABCR 40 MEQ PO (08:19)
[2021-02-21] MEDS: Aspirin E.C. 81 MG TABEC PO (08:19)
[2021-02-21] MEDS: guaiFENesin 600 MG TABCR 1200 MG PO (08:19)
[2021-02-21] MEDS: Multivitamin TAB 1 TAB PO (08:19)
--- NOTE | 2021-02-21 08:30 | W.PM.PROGNOT ---
Subjective Subjective Interval history since last seen: On BiPAP all night since 10 pm, off around 6 am. Did very well. ABG pending this am. Does need 3.5 L. UOP 1350 cc. Objective Last Vital Signs Temp 36.3 C L 02/21/21 05:01 Pulse 48 L 02/21/21 06:16 Resp 18 02/21/21 06:16 BP 125/66 02/21/21 06:16 Pulse Ox 96 02/21/21 06:16 Laboratory Results - last 24 hr 02/21/21 06:30 Sodium 139 Potassium 3.4 L Chloride 98 Carbon Dioxide 39.5 H Anion Gap 1.5 L BUN 20 H Creatinine 0.7 Estimated GFR/1.73 m2 >= 60.00 Glucose 114 H Calcium 9.3 Magnesium 2.6 H
--- NOTE | 2021-02-21 08:59 | RESPIRATORY ---
02/21/21-Pt states he wore the Edge NIV-ST throughout the night. Pt is trying to qualify for a NIV with [facility] at home. Pt will have a bedside Spirometry this am for qualifications. Pt will need a Exercise Oximetry walk to determine home O2 needs.
--- NOTE | 2021-02-21 10:44 | W.PULMPROG ---
General Date Of Service Date of service: 02/21/21 Time of Service: 08:00 Requesting physician: Munira Jerez Reason for Consult: Hypoxic and Hypercapnic respiratory failure Subjective 24 Hour Events: Patient continued to diurese, bicarb improved with Diamox, he is still on 3.5 L nasal cannula but is being transferred out of the ICU. Note Note: uMrray is feeling well this morning. He states that he feels more awake after wearing the mask. He was successful in wearing BiPAP for most of the night with a backup rate set. Exam Narrative Exam Narrative: 02/18/21 POCUS: Difficult views due to body habitus Parasternal short and long axis views obtained however difficult to interpret given air and body habitus. 4 axis view obtained and shows enlarged right ventricle with weakened appearing systolic function. Subxiphoid view obtained and shows again an enlarged right ventricle with decreased RV function. LV function appears to be normal with no visible areas of focal or diffuse hypokinesis. IVC visualized from subxiphoid view and appears large in size with most no respiratory variation. Const General: no acute distress Nutritional Appearance: obese morbidly obese [facility] Head: normocephalic Ears: external ears normal and periauricular adenopathy General nose exam: nasal mucous membranes and turbinates normal Face and sinus: normal facial exam Mouth: moist mucous membranes Teeth and gingiva: fair dentition Eyes General: appearance normal, both eyes and all related structures Pupils: PERRL Neck Neck: normal visual inspection, no lymphadenopathy and no JVD (difficult to visualize given body habitus) Lymphatic: no lymphadenopathy noted Chest Chest: normal inspection of the chest Resp Effort & Inspection: normal respiratory effort and able to speak in complete sentences Auscultation: no rales, no rhonchi and no wheezes Cardio Rate: tachycardic Rhythm: regular rhythm Heart Sounds: S1 normal, S2 normal and no murmurs Pulses: radial pulses present bilaterally GI Inspection: normal to inspection Palpation: soft Skin Rashes: rashes noted (stasis dermatitis on bilateral legs) Nails: no clubbing Neuro General: patient alert, patient awake and patient oriented x3 Extrem General: no clubbing, no cyanosis and edema ( 3+ pitting to knee) Laterality: bilateral Psych Mental Status: mental status grossly normal Affect: normal affect Attitude: cooperative Objective Last Vital Signs Temp 36.3 C L 02/21/21 05:01 Pulse 58 L 02/21/21 08:40 Resp 18 02/21/21 06:16 BP 125/66 02/21/21 06:16 Pulse Ox 96 02/21/21 06:16 Laboratory Results - last 24 hr 02/21/21 02/21/21 06:30 08:00 ABG Sample Site Cancelled ABG pH Cancelled ABG pCO2 Cancelled ABG pO2 Cancelled ABG HCO3 Cancelled ABG Total CO2 Cancelled ABG O2 Saturation Cancelled ABG Base Excess Cancelled Oxygen Liter Flow Cancelled FiO2 Cancelled Sodium 139 Potassium 3.4 L Chloride 98 Carbon Dioxide 39.5 H Anion Gap 1.5 L BUN 20 H Creatinine 0.7 Estimated GFR/1.73 m2 >= 60.00 Glucose 114 H Calcium 9.3 Magnesium 2.6 H Results Medications Medications: Active Medications Generic Name Dose Route Start Last Admin Trade Name Freq PRN Reason Stop Dose Admin Acetaminophen 650 mg 02/17/21 18:22 02/20/21 15:58 Acetaminophen 325 Mg Tab PO 650 mg Q4H PRN PRN Administration Apixaban 5 mg 02/20/21 08:30 02/21/21 08:18 Apixaban 5 Mg Tab PO 5 mg BID LENKA Administration Aspirin 81 mg 02/18/21 08:30 02/21/21 08:19 Aspirin E.C. 81 Mg Tabec PO 81 mg DAILY LENKA Administration Dimethicone/Zinc Oxide 0 gm 02/17/21 18:16 02/19/21 14:50 Naif Protect Cream 142 Gm Tube TP 1 tube PRN PRN Administration Furosemide 40 mg 02/21/21 08:30 02/21/21 08:18 Furosemide 40 Mg Tab PO 40 mg BID@0830,1600 LENKA Administration Guaifenesin 1,200 mg 02/18/21 08:40 02/21/21 08:19 Guaifenesin 600 Mg Tabcr PO 1,200 mg BID LENKA Administration IV Miscellaneous Supplies 1 each 02/17/21 11:45 Iv Access IV DIRECTED LENKA Lorazepam 0.5 mg 02/20/21 17:20 02/20/21 20:28 Lorazepam 0.5 Mg Tab PO 0.5 mg HS PRN PRN Administration Melatonin 3 - 6 mg 02/17/21 18:22 02/20/21 20:28 Melatonin 3 Mg Tab PO 6 mg HS PRN Administration Metoprolol Succinate 50 mg 02/20/21 08:30 02/21/21 08:18 Metoprolol Cr 50 Mg Tabcr PO 50 mg DAILY LENKA Administration Metoprolol Tartrate 5 mg 02/18/21 07:33 02/20/21 05:49 Metoprolol 5 Mg/5 Ml Vial IVP 5 mg Q6H PRN PRN Administration Multivitamins 1 tab 02/21/21 08:30 02/21/21 08:19 Multivitamin Tab PO 1 tab DAILY LENKA Administration Potassium Chloride 40 meq 02/21/21 08:30 02/21/21 08:19 Potassium Chloride 20 Meq Tabcr PO 02/22/21 08:31 40 meq BID LENKA Administration Sodium Chloride 0 ml 02/17/21 11:38 02/20/21 20:28 Normal Saline Flush 10 Ml Syr IVP 10 ml PRN PRN Administration [id number]-Hsbriaovfu Acetate 800 units 02/21/21 08:30 02/21/21 08:19 Vitamin E 400 Units Cap PO 800 units DAILY LENKA Administration Allergies lisinopril Adverse Reaction (Verified 02/17/21 11:33) Labs Result Diagrams: 02/17/21 11:40 02/21/21 06:30 Labs: 02/19/21 11:45 Urine - Clean Catch Urine Culture - Preliminary Gram Positive Wendy,Mixed Laboratory Tests Range/Units 02/17/21 02/17/21 02/17/21 11:40 11:40 11:40 WBC (4.4-10.8) 10^3/uL 8.63 RBC (4.36-5.78) 10^6/uL 4.61 Hgb (13.5-17.5) g/dL 14.1 Hct (40.0-50.0) % 44.4 MCV (80-95) fL 96.3 H MCH (27.0-33.0) pg 30.6 MCHC (32.0-36.0) % 31.8 L RDW (11.8-14.1) % 14.1 Plt Count (130-400) 10^3/uL 287 MPV (8.0-11.0) fL 9.6 Immature Gran % 0.3 Neutrophils % 64.1 Lymphocytes % 24.0 Monocytes % 11.2 Eosinophils % 0.2 Basophils % 0.2 Nucleated RBC % % 0 Absolute Neutrophils (1.2-6.7) 10^3/uL 5.52 Absolute Lymphocytes (1.2-3.4) 10^3/uL 2.07 Absolute Monocytes (0.1-0.8) 10^3/uL 0.97 H Absolute Eosinophils (0.0-0.7) 10^3/uL 0.02 Absolute Basophils (0.0-0.2) 10^3/uL 0.02 APTT (21.0-27.5) sec D-Dimer (<500) ng/mlFEU ABG Sample Site ABG pH ABG pCO2 ABG pO2 ABG HCO3 ABG Total CO2 ABG O2 Saturation ABG Base Excess VBG pH (7.31-7.41) VBG pCO2 (41-51) mmHg VBG pO2 mmHg VBG HCO3 (23-28) mmol/L VBG Total CO2 (24-29) mmol/L VBG O2 Saturation % VBG Base Excess (-2-3) mmol/L Oxygen Liter Flow FiO2 Sodium (136-145) mmol/L 140 Potassium (3.5-5.1) mmol/L 3.5 Chloride (98-107) mmol/L 97 L Carbon Dioxide (21.0-32.0) mmol/L 39.9 H Anion Gap (3-11) mmol/L 3.1 BUN (7-18) mg/dL 18 Creatinine (0.70-1.30) mg/dL 0.8 Estimated GFR/1.73 m2 (mL/min/1.73m2) >= 60.00 Glucose (74-106) mg/dL 111 H Hemoglobin A1c (<5.7) % Calcium (8.5-10.1) mg/dL 8.9 Magnesium (1.8-2.4) mg/dL 2.1 Total Bilirubin (0.2-1.0) mg/dL 0.6 AST (15-37) U/L 21 ALT (16-63) U/L 34 Alkaline Phosphatase (46-116) U/L 63 Troponin I (<0.06) ng/mL 0.07 H NT-Pro-B Natriuret Pep (<300) pg/mL 207 Total Protein (6.4-8.2) g/dL 7.4 Albumin (3.4-5.0) g/dL 3.6 Triglycerides (<150) mg/dL Total Cholesterol (<200) mg/dL LDL Cholesterol, Calc (<100) mg/dL HDL Cholesterol (40-60) mg/dL Urine Color (Yellow) Urine Clarity (Clear) Urine pH (5-8) Ur Specific [place] (1.005-1.025) Urine Protein (Negative) mg/dL Urine Ketones (Negative) mg/dL Urine Blood (Negative) Urine Nitrite (Negative) Urine Bilirubin (Negative) Urine Urobilinogen (Up TO 0.2) EU/dL Ur Leukocyte Esterase (Negative) Urine RBC (0-2) HPF Urine WBC (0-5) HPF Ur Epithelial Cells (Negative) HPF Urine Crystals (Negative) HPF Urine Bacteria (Negative) HPF Urine Mucus (Negative) Ur Culture Indicated? Urine Glucose (Negative) mg/dL COVID-19 Source SARS-CoV-2 (PCR) (Negative) Range/Units 02/17/21 02/17/21 02/17/21 11:40 11:44 14:40 WBC (4.4-10.8) 10^3/uL RBC (4.36-5.78) 10^6/uL Hgb (13.5-17.5) g/dL Hct (40.0-50.0) % MCV (80-95) fL MCH (27.0-33.0) pg MCHC (32.0-36.0) % RDW (11.8-14.1) % Plt Count (130-400) 10^3/uL MPV (8.0-11.0) fL Immature Gran % Neutrophils % Lymphocytes % Monocytes % Eosinophils % Basophils % Nucleated RBC % % Absolute Neutrophils (1.2-6.7) 10^3/uL Absolute Lymphocytes (1.2-3.4) 10^3/uL Absolute Monocytes (0.1-0.8) 10^3/uL Absolute Eosinophils (0.0-0.7) 10^3/uL Absolute Basophils (0.0-0.2) 10^3/uL APTT (21.0-27.5) sec D-Dimer (<500) ng/mlFEU 876 H ABG Sample Site ABG pH ABG pCO2 ABG pO2 ABG HCO3 ABG Total CO2 ABG O2 Saturation ABG Base Excess VBG pH (7.31-7.41) VBG pCO2 (41-51) mmHg VBG pO2 mmHg VBG HCO3 (23-28) mmol/L VBG Total CO2 (24-29) mmol/L VBG O2 Saturation % VBG Base Excess (-2-3) mmol/L Oxygen Liter Flow FiO2 Sodium (136-145) mmol/L Potassium (3.5-5.1) mmol/L Chloride (98-107) mmol/L Carbon Dioxide (21.0-32.0) mmol/L Anion Gap (3-11) mmol/L BUN (7-18) mg/dL Creatinine (0.70-1.30) mg/dL Estimated GFR/1.73 m2 (mL/min/1.73m2) Glucose (74-106) mg/dL Hemoglobin A1c (<5.7) % Calcium (8.5-10.1) mg/dL Magnesium (1.8-2.4) mg/dL Total Bilirubin (0.2-1.0) mg/dL AST (15-37) U/L ALT (16-63) U/L Alkaline Phosphatase (46-116) U/L Troponin I (<0.06) ng/mL 0.11 H* NT-Pro-B Natriuret Pep (<300) pg/mL Total Protein (6.4-8.2) g/dL Albumin (3.4-5.0) g/dL Triglycerides (<150) mg/dL Total Cholesterol (<200) mg/dL LDL Cholesterol, Calc (<100) mg/dL HDL Cholesterol (40-60) mg/dL Urine Color (Yellow) Urine Clarity (Clear) Urine pH (5-8) Ur Specific [place] (1.005-1.025) Urine Protein (Negative) mg/dL Urine Ketones (Negative) mg/dL Urine Blood (Negative) Urine Nitrite (Negative) Urine Bilirubin (Negative) Urine Urobilinogen (Up TO 0.2) EU/dL Ur Leukocyte Esterase (Negative) Urine RBC (0-2) HPF Urine WBC (0-5) HPF Ur Epithelial Cells (Negative) HPF Urine Crystals (Negative) HPF Urine Bacteria (Negative) HPF Urine Mucus (Negative) Ur Culture Indicated? Urine Glucose (Negative) mg/dL COVID-19 Source Nasal/Nares SARS-CoV-2 (PCR) (Negative) Negative Range/Units 02/17/21 02/17/21 02/17/21 16:02 17:00 17:00 WBC (4.4-10.8) 10^3/uL RBC (4.36-5.78) 10^6/uL Hgb (13.5-17.5) g/dL Hct (40.0-50.0) % MCV (80-95) fL MCH (27.0-33.0) pg MCHC (32.0-36.0) % RDW (11.8-14.1) % Plt Count (130-400) 10^3/uL MPV (8.0-11.0) fL Immature Gran % Neutrophils % Lymphocytes % Monocytes % Eosinophils % Basophils % Nucleated RBC % % Absolute Neutrophils (1.2-6.7) 10^3/uL Absolute Lymphocytes (1.2-3.4) 10^3/uL Absolute Monocytes (0.1-0.8) 10^3/uL Absolute Eosinophils (0.0-0.7) 10^3/uL Absolute Basophils (0.0-0.2) 10^3/uL APTT (21.0-27.5) sec 24.0 D-Dimer (<500) ng/mlFEU ABG Sample Site Cancelled ABG pH Cancelled ABG pCO2 Cancelled ABG pO2 Cancelled ABG HCO3 Cancelled ABG Total CO2 Cancelled ABG O2 Saturation Cancelled ABG Base Excess Cancelled VBG pH (7.31-7.41) 7.34 VBG pCO2 (41-51) mmHg 77 H* VBG pO2 mmHg 70 VBG HCO3 (23-28) mmol/L 41 H VBG Total CO2 (24-29) mmol/L 37 H VBG O2 Saturation % 93 VBG Base Excess (-2-3) mmol/L > 15 H Oxygen Liter Flow Cancelled FiO2 Cancelled Sodium (136-145) mmol/L Potassium (3.5-5.1) mmol/L Chloride (98-107) mmol/L Carbon Dioxide (21.0-32.0) mmol/L Anion Gap (3-11) mmol/L BUN (7-18) mg/dL Creatinine (0.70-1.30) mg/dL Estimated GFR/1.73 m2 (mL/min/1.73m2) Glucose (74-106) mg/dL Hemoglobin A1c (<5.7) % Calcium (8.5-10.1) mg/dL Magnesium (1.8-2.4) mg/dL Total Bilirubin (0.2-1.0) mg/dL AST (15-37) U/L ALT (16-63) U/L Alkaline Phosphatase (46-116) U/L Troponin I (<0.06) ng/mL NT-Pro-B Natriuret Pep (<300) pg/mL Total Protein (6.4-8.2) g/dL Albumin (3.4-5.0) g/dL Triglycerides (<150) mg/dL Total Cholesterol (<200) mg/dL LDL Cholesterol, Calc (<100) mg/dL HDL Cholesterol (40-60) mg/dL Urine Color (Yellow) Urine Clarity (Clear) Urine pH (5-8) Ur Specific [place] (1.005-1.025) Urine Protein (Negative) mg/dL Urine Ketones (Negative) mg/dL Urine Blood (Negative) Urine Nitrite (Negative) Urine Bilirubin (Negative) Urine Urobilinogen (Up TO 0.2) EU/dL Ur Leukocyte Esterase (Negative) Urine RBC (0-2) HPF Urine WBC (0-5) HPF Ur Epithelial Cells (Negative) HPF Urine Crystals (Negative) HPF Urine Bacteria (Negative) HPF Urine Mucus (Negative) Ur Culture Indicated? Urine Glucose (Negative) mg/dL COVID-19 Source SARS-CoV-2 (PCR) (Negative) Range/Units 02/17/21 02/17/21 02/18/21 19:44 22:58 06:30 WBC (4.4-10.8) 10^3/uL RBC (4.36-5.78) 10^6/uL Hgb (13.5-17.5) g/dL Hct (40.0-50.0) % MCV (80-95) fL MCH (27.0-33.0) pg MCHC (32.0-36.0) % RDW (11.8-14.1) % Plt Count (130-400) 10^3/uL MPV (8.0-11.0) fL Immature Gran % Neutrophils % Lymphocytes % Monocytes % Eosinophils % Basophils % Nucleated RBC % % Absolute Neutrophils (1.2-6.7) 10^3/uL Absolute Lymphocytes (1.2-3.4) 10^3/uL Absolute Monocytes (0.1-0.8) 10^3/uL Absolute Eosinophils (0.0-0.7) 10^3/uL Absolute Basophils (0.0-0.2) 10^3/uL APTT (21.0-27.5) sec 27.2 D-Dimer (<500) ng/mlFEU ABG Sample Site ABG pH ABG pCO2 ABG pO2 ABG HCO3 ABG Total CO2 ABG O2 Saturation ABG Base Excess VBG pH (7.31-7.41) VBG pCO2 (41-51) mmHg VBG pO2 mmHg VBG HCO3 (23-28) mmol/L VBG Total CO2 (24-29) mmol/L VBG O2 Saturation % VBG Base Excess (-2-3) mmol/L Oxygen Liter Flow FiO2 Sodium (136-145) mmol/L 140 Potassium (3.5-5.1) mmol/L 3.7 Chloride (98-107) mmol/L 98 Carbon Dioxide (21.0-32.0) mmol/L 39.9 H Anion Gap (3-11) mmol/L 2.1 L BUN (7-18) mg/dL 18 Creatinine (0.70-1.30) mg/dL 0.7 Estimated GFR/1.73 m2 (mL/min/1.73m2) >= 60.00 Glucose (74-106) mg/dL 117 H Hemoglobin A1c (<5.7) % Calcium (8.5-10.1) mg/dL 8.4 L Magnesium (1.8-2.4) mg/dL 2.3 Total Bilirubin (0.2-1.0) mg/dL AST (15-37) U/L ALT (16-63) U/L Alkaline Phosphatase (46-116) U/L Troponin I (<0.06) ng/mL 0.11 H* 0.06 NT-Pro-B Natriuret Pep (<300) pg/mL Total Protein (6.4-8.2) g/dL Albumin (3.4-5.0) g/dL Triglycerides (<150) mg/dL 85 Total Cholesterol (<200) mg/dL 132 LDL Cholesterol, Calc (<100) mg/dL 69 HDL Cholesterol (40-60) mg/dL 46 Urine Color (Yellow) Urine Clarity (Clear) Urine pH (5-8) Ur Specific [place] (1.005-1.025) Urine Protein (Negative) mg/dL Urine Ketones (Negative) mg/dL Urine Blood (Negative) Urine Nitrite (Negative) Urine Bilirubin (Negative) Urine Urobilinogen (Up TO 0.2) EU/dL Ur Leukocyte Esterase (Negative) Urine RBC (0-2) HPF Urine WBC (0-5) HPF Ur Epithelial Cells (Negative) HPF Urine Crystals (Negative) HPF Urine Bacteria (Negative) HPF Urine Mucus (Negative) Ur Culture Indicated? Urine Glucose (Negative) mg/dL COVID-19 Source SARS-CoV-2 (PCR) (Negative) Range/Units 02/18/21 02/18/21 02/18/21 06:30 06:30 08:55 WBC (4.4-10.8) 10^3/uL RBC (4.36-5.78) 10^6/uL Hgb (13.5-17.5) g/dL Hct (40.0-50.0) % MCV (80-95) fL MCH (27.0-33.0) pg MCHC (32.0-36.0) % RDW (11.8-14.1) % Plt Count (130-400) 10^3/uL MPV (8.0-11.0) fL Immature Gran % Neutrophils % Lymphocytes % Monocytes % Eosinophils % Basophils % Nucleated RBC % % Absolute Neutrophils (1.2-6.7) 10^3/uL Absolute Lymphocytes (1.2-3.4) 10^3/uL Absolute Monocytes (0.1-0.8) 10^3/uL Absolute Eosinophils (0.0-0.7) 10^3/uL Absolute Basophils (0.0-0.2) 10^3/uL APTT (21.0-27.5) sec 45.2 H D D-Dimer (<500) ng/mlFEU ABG Sample Site ABG pH ABG pCO2 ABG pO2 ABG HCO3 ABG Total CO2 ABG O2 Saturation ABG Base Excess VBG pH (7.31-7.41) 7.36 VBG pCO2 (41-51) mmHg 74 H* VBG pO2 mmHg 60 VBG HCO3 (23-28) mmol/L 42 H VBG Total CO2 (24-29) mmol/L 38 H VBG O2 Saturation % 91 VBG Base Excess (-2-3) mmol/L > 15 H Oxygen Liter Flow FiO2 Sodium (136-145) mmol/L Potassium (3.5-5.1) mmol/L Chloride (98-107) mmol/L Carbon Dioxide (21.0-32.0) mmol/L Anion Gap (3-11) mmol/L BUN (7-18) mg/dL Creatinine (0.70-1.30) mg/dL Estimated GFR/1.73 m2 (mL/min/1.73m2) Glucose (74-106) mg/dL Hemoglobin A1c (<5.7) % 5.8 H Calcium (8.5-10.1) mg/dL Magnesium (1.8-2.4) mg/dL Total Bilirubin (0.2-1.0) mg/dL AST (15-37) U/L ALT (16-63) U/L Alkaline Phosphatase (46-116) U/L Troponin I (<0.06) ng/mL NT-Pro-B Natriuret Pep (<300) pg/mL Total Protein (6.4-8.2) g/dL Albumin (3.4-5.0) g/dL Triglycerides (<150) mg/dL Total Cholesterol (<200) mg/dL LDL Cholesterol, Calc (<100) mg/dL HDL Cholesterol (40-60) mg/dL Urine Color (Yellow) Urine Clarity (Clear) Urine pH (5-8) Ur Specific [place] (1.005-1.025) Urine Protein (Negative) mg/dL Urine Ketones (Negative) mg/dL Urine Blood (Negative) Urine Nitrite (Negative) Urine Bilirubin (Negative) Urine Urobilinogen (Up TO 0.2) EU/dL Ur Leukocyte Esterase (Negative) Urine RBC (0-2) HPF Urine WBC (0-5) HPF Ur Epithelial Cells (Negative) HPF Urine Crystals (Negative) HPF Urine Bacteria (Negative) HPF Urine Mucus (Negative) Ur Culture Indicated? Urine Glucose (Negative) mg/dL COVID-19 Source SARS-CoV-2 (PCR) (Negative) Range/Units 02/18/21 02/19/21 02/19/21 12:00 06:14 06:14 WBC (4.4-10.8) 10^3/uL RBC (4.36-5.78) 10^6/uL Hgb (13.5-17.5) g/dL Hct (40.0-50.0) % MCV (80-95) fL MCH (27.0-33.0) pg MCHC (32.0-36.0) % RDW (11.8-14.1) % Plt Count (130-400) 10^3/uL MPV (8.0-11.0) fL Immature Gran % Neutrophils % Lymphocytes % Monocytes % Eosinophils % Basophils % Nucleated RBC % % Absolute Neutrophils (1.2-6.7) 10^3/uL Absolute Lymphocytes (1.2-3.4) 10^3/uL Absolute Monocytes (0.1-0.8) 10^3/uL Absolute Eosinophils (0.0-0.7) 10^3/uL Absolute Basophils (0.0-0.2) 10^3/uL APTT (21.0-27.5) sec 38.8 H D-Dimer (<500) ng/mlFEU ABG Sample Site Right Radial ABG pH 7.41 ABG pCO2 68 H* ABG pO2 76 L ABG HCO3 44 H ABG Total CO2 38 H ABG O2 Saturation 95 ABG Base Excess > 15 H VBG pH (7.31-7.41) VBG pCO2 (41-51) mmHg VBG pO2 mmHg VBG HCO3 (23-28) mmol/L VBG Total CO2 (24-29) mmol/L VBG O2 Saturation % VBG Base Excess (-2-3) mmol/L Oxygen Liter Flow 4 FiO2 Sodium (136-145) mmol/L 141 Potassium (3.5-5.1) mmol/L 3.9 Chloride (98-107) mmol/L 98 Carbon Dioxide (21.0-32.0) mmol/L 42.3 H Anion Gap (3-11) mmol/L 0.7 L BUN (7-18) mg/dL 19 H Creatinine (0.70-1.30) mg/dL 0.7 Estimated GFR/1.73 m2 (mL/min/1.73m2) >= 60.00 Glucose (74-106) mg/dL 114 H Hemoglobin A1c (<5.7) % Calcium (8.5-10.1) mg/dL 8.2 L Magnesium (1.8-2.4) mg/dL 2.2 Total Bilirubin (0.2-1.0) mg/dL AST (15-37) U/L ALT (16-63) U/L Alkaline Phosphatase (46-116) U/L Troponin I (<0.06) ng/mL NT-Pro-B Natriuret Pep (<300) pg/mL Total Protein (6.4-8.2) g/dL Albumin (3.4-5.0) g/dL Triglycerides (<150) mg/dL Total Cholesterol (<200) mg/dL LDL Cholesterol, Calc (<100) mg/dL HDL Cholesterol (40-60) mg/dL Urine Color (Yellow) Urine Clarity (Clear) Urine pH (5-8) Ur Specific [place] (1.005-1.025) Urine Protein (Negative) mg/dL Urine Ketones (Negative) mg/dL Urine Blood (Negative) Urine Nitrite (Negative) Urine Bilirubin (Negative) Urine Urobilinogen (Up TO 0.2) EU/dL Ur Leukocyte Esterase (Negative) Urine RBC (0-2) HPF Urine WBC (0-5) HPF Ur Epithelial Cells (Negative) HPF Urine Crystals (Negative) HPF Urine Bacteria (Negative) HPF Urine Mucus (Negative) Ur Culture Indicated? Urine Glucose (Negative) mg/dL COVID-19 Source SARS-CoV-2 (PCR) (Negative) Range/Units 02/19/21 02/19/21 02/20/21 11:45 15:25 06:22 WBC (4.4-10.8) 10^3/uL RBC (4.36-5.78) 10^6/uL Hgb (13.5-17.5) g/dL Hct (40.0-50.0) % MCV (80-95) fL MCH (27.0-33.0) pg MCHC (32.0-36.0) % RDW (11.8-14.1) % Plt Count (130-400) 10^3/uL MPV (8.0-11.0) fL Immature Gran % Neutrophils % Lymphocytes % Monocytes % Eosinophils % Basophils % Nucleated RBC % % Absolute Neutrophils (1.2-6.7) 10^3/uL Absolute Lymphocytes (1.2-3.4) 10^3/uL Absolute Monocytes (0.1-0.8) 10^3/uL Absolute Eosinophils (0.0-0.7) 10^3/uL Absolute Basophils (0.0-0.2) 10^3/uL APTT (21.0-27.5) sec 45.9 H D-Dimer (<500) ng/mlFEU ABG Sample Site ABG pH ABG pCO2 ABG pO2 ABG HCO3 ABG Total CO2 ABG O2 Saturation ABG Base Excess VBG pH (7.31-7.41) VBG pCO2 (41-51) mmHg VBG pO2 mmHg VBG HCO3 (23-28) mmol/L VBG Total CO2 (24-29) mmol/L VBG O2 Saturation % VBG Base Excess (-2-3) mmol/L Oxygen Liter Flow FiO2 Sodium (136-145) mmol/L 142 Potassium (3.5-5.1) mmol/L 3.1 L Chloride (98-107) mmol/L 94 L Carbon Dioxide (21.0-32.0) mmol/L > 45.0 H Anion Gap (3-11) mmol/L BUN (7-18) mg/dL 16 Creatinine (0.70-1.30) mg/dL 0.7 Estimated GFR/1.73 m2 (mL/min/1.73m2) >= 60.00 Glucose (74-106) mg/dL 102 Hemoglobin A1c (<5.7) % Calcium (8.5-10.1) mg/dL 8.3 L Magnesium (1.8-2.4) mg/dL 2.0 Total Bilirubin (0.2-1.0) mg/dL AST (15-37) U/L ALT (16-63) U/L Alkaline Phosphatase (46-116) U/L Troponin I (<0.06) ng/mL NT-Pro-B Natriuret Pep (<300) pg/mL Total Protein (6.4-8.2) g/dL Albumin (3.4-5.0) g/dL Triglycerides (<150) mg/dL Total Cholesterol (<200) mg/dL LDL Cholesterol, Calc (<100) mg/dL HDL Cholesterol (40-60) mg/dL Urine Color (Yellow) Yellow Urine Clarity (Clear) Clear Urine pH (5-8) 7.0 Ur Specific [place] (1.005-1.025) 1.020 Urine Protein (Negative) mg/dL Negative Urine Ketones (Negative) mg/dL Negative Urine Blood (Negative) Moderate H Urine Nitrite (Negative) Negative Urine Bilirubin (Negative) Negative Urine Urobilinogen (Up TO 0.2) EU/dL 0.2 Ur Leukocyte Esterase (Negative) Negative Urine RBC (0-2) HPF 20-50 H Urine WBC (0-5) HPF Negative Ur Epithelial Cells (Negative) HPF Negative Urine Crystals (Negative) HPF Negative Urine Bacteria (Negative) HPF Negative Urine Mucus (Negative) Trace Ur Culture Indicated? C&S Done As Ordered Urine Glucose (Negative) mg/dL Negative COVID-19 Source SARS-CoV-2 (PCR) (Negative) Range/Units 02/21/21 02/21/21 06:30 08:00 WBC (4.4-10.8) 10^3/uL RBC (4.36-5.78) 10^6/uL Hgb (13.5-17.5) g/dL Hct (40.0-50.0) % MCV (80-95) fL MCH (27.0-33.0) pg MCHC (32.0-36.0) % RDW (11.8-14.1) % Plt Count (130-400) 10^3/uL MPV (8.0-11.0) fL Immature Gran % Neutrophils % Lymphocytes % Monocytes % Eosinophils % Basophils % Nucleated RBC % % Absolute Neutrophils (1.2-6.7) 10^3/uL Absolute Lymphocytes (1.2-3.4) 10^3/uL Absolute Monocytes (0.1-0.8) 10^3/uL Absolute Eosinophils (0.0-0.7) 10^3/uL Absolute Basophils (0.0-0.2) 10^3/uL APTT (21.0-27.5) sec D-Dimer (<500) ng/mlFEU ABG Sample Site Cancelled ABG pH Cancelled ABG pCO2 Cancelled ABG pO2 Cancelled ABG HCO3 Cancelled ABG Total CO2 Cancelled ABG O2 Saturation Cancelled ABG Base Excess Cancelled VBG pH (7.31-7.41) VBG pCO2 (41-51) mmHg VBG pO2 mmHg VBG HCO3 (23-28) mmol/L VBG Total CO2 (24-29) mmol/L VBG O2 Saturation % VBG Base Excess (-2-3) mmol/L Oxygen Liter Flow Cancelled FiO2 Cancelled Sodium (136-145) mmol/L 139 Potassium (3.5-5.1) mmol/L 3.4 L Chloride (98-107) mmol/L 98 Carbon Dioxide (21.0-32.0) mmol/L 39.5 H Anion Gap (3-11) mmol/L 1.5 L BUN (7-18) mg/dL 20 H Creatinine (0.70-1.30) mg/dL 0.7 Estimated GFR/1.73 m2 (mL/min/1.73m2) >= 60.00 Glucose (74-106) mg/dL 114 H Hemoglobin A1c (<5.7) % Calcium (8.5-10.1) mg/dL 9.3 Magnesium (1.8-2.4) mg/dL 2.6 H Total Bilirubin (0.2-1.0) mg/dL AST (15-37) U/L ALT (16-63) U/L Alkaline Phosphatase (46-116) U/L Troponin I (<0.06) ng/mL NT-Pro-B Natriuret Pep (<300) pg/mL Total Protein (6.4-8.2) g/dL Albumin (3.4-5.0) g/dL Triglycerides (<150) mg/dL Total Cholesterol (<200) mg/dL LDL Cholesterol, Calc (<100) mg/dL HDL Cholesterol (40-60) mg/dL Urine Color (Yellow) Urine Clarity (Clear) Urine pH (5-8) Ur Specific [place] (1.005-1.025) Urine Protein (Negative) mg/dL Urine Ketones (Negative) mg/dL Urine Blood (Negative) Urine Nitrite (Negative) Urine Bilirubin (Negative) Urine Urobilinogen (Up TO 0.2) EU/dL Ur Leukocyte Esterase (Negative) Urine RBC (0-2) HPF Urine WBC (0-5) HPF Ur Epithelial Cells (Negative) HPF Urine Crystals (Negative) HPF Urine Bacteria (Negative) HPF Urine Mucus (Negative) Ur Culture Indicated? Urine Glucose (Negative) mg/dL COVID-19 Source SARS-CoV-2 (PCR) (Negative) Assessment and Plan Assessment and plan (1) Acute on chronic respiratory failure with hypoxia and hypercapnia: Status: Acute (2) Obesity hypoventilation syndrome: Status: Acute (3) Right-sided heart failure: Status: Chronic Qualifiers: Heart failure chronicity: acute on chronic Qualified Code(s): I50.813 - Acute on chronic right heart failure (4) Pulmonary hypertension: Status: Acute Assessment and plan: This is a 76 old male who was admitted for hypoxic and hypercapnic respiratory failure found to have likely RV failure with pulmonary hypertension due to obesity hypoventilation syndrome. Cumulatively he is -6 L and has improved clinically due to this. He is still requiring oxygen and likely needs to be discharged with home oxygen. For his OHS he will need nocturnal noninvasive ventilation. We have tried him with BiPAP however required a backup rate and has had inefficient tidal volumes with the BiPAP. He will require a noninvasive ventilation mode that has guaranteed tidal volume delivery as well as a backup rate, such as AVAPS. We are going to work on qualifying him for an Astral unit. Acute on chronic respiratory failure with hypoxia and hypercapnia - discharge with home O2 - ambulatory pulse ox - NIV as below OHS - will qualify for Astral unit - settings: 12/5, rate 12, 50% ramp, 30% FiO2, Vt 500mL - weight loss - would like to meet with nutrition at 1pm when his is present Right ventricular dysfunction -recommend continue outpatient diuresis with PO Lasix - can D/C Diamox - follow up with PCP with repeat labs in 3 days (electrolytes) - I will schedule him to follow up with my within a month Pulmonary Hypertension - I will plan on repeat a TTE as an outpatient (I will arrange timing when I see him) as the RV was not well visualized on formal TTE as inpatient
--- NOTE | 2021-02-21 13:59 | DSE_ITS ---
Date of service: 02/21/21 Time of Service: 13:59 DS: Diagnosis Discharge Diagnosis (1) Acute on chronic respiratory failure with hypoxia and hypercapnia: Status: Acute (2) Obesity hypoventilation syndrome: Status: Acute (3) Right-sided heart failure: Status: Chronic (4) Pulmonary hypertension: Status: Acute (5) Paroxysmal A-fib: Status: Acute (6) Penile bleeding: Status: Resolved (7) COPD (chronic obstructive pulmonary disease): Status: Chronic (8) Demand ischemia: Status: Resolved (9) Hypokalemia: Status: Acute (10) Hypertension: Status: Chronic (11) Prediabetes: Status: Acute (12) Obesity, morbid, BMI 50 or higher: Status: Chronic (13) COVID-19 ruled out by laboratory testing: Status: Ruled-out Discharge Plan Disposition Patient Disposition: HOME Condition: Stable Discharge Details Reason For Visit: NSTEMI Admit Date/Time: 02/18/21 11:40 Admit Provider: Brandt Vidal Attending Provider: Brandt Vidal Primary Care Provider: Elkin Oshea Hospital Course Hospital Course: Mr Arndt is a 76 year old male with PMHx of obesity with BMI of 52.7 kg/m2 and tobacco abuse in remission, who was admitted to [facility] ICU under the hospitalist service on 02/17/21 for acute on chronic hypoxic hypercapnic respiratory failure and elevated troponin. Patient's workup ruled out PE with a negative CTA of the chest. The patient was initially accepted at [facility] by cardiology for a diagnosis of NSTEMI with plans for an evaluation for a cardiac cath. He was initiated on heparin drip, aspirin, and plavix (and did complete 48 hrs of ROB). However, as the patient's clinical course progressed, it became evident that this was likely a type 2 NSTEMI due to demand created by hypoxemia and cor pulmonale rather than underlying coronary ischemia, and the transfer was cancelled. He will need an outpatient MPI to conclude his ischemic workup and should remain on baby aspirin. His clinical picture is most consistent with obesity hypoventilation syndrome, pulmonary hypertension and COPD, not in acute exacerbation. The patient was initiated on BiPAP therapy and diuresed. With this, his oxygen requirement decreased from 4L on admission (was saturating 62% on room air) to 2L at rest and 3L with activity by ambulatory pulse ox testing. His echo, unfortunately, was unable to clearly state the degree of pulmonary hypertension, but he does have a dilated RV and evidence of hepatopulmonary reflux on CT, c/w pulmonary hypertension. He is being discharged home with a Trilogy machine for sleep/naps. The patient's PFTs were c/w COPD, and he is being discharged home on stiolto and albuterol prn. Throughout the patient's hospitalization, he was seen and managed for his respiratory conditions by Dr Brower who will follow up with the patient as outpatient. Additionally, the patient did have a bout of rapid Afib, which is a new diagnosis for him. His rate was controlled with metoprolol, and he did convert back to NSR and back to Afib, though now rate controlled, during his admission. His echo was of limited quality due to patient's body habitus. He was initiated on eliquis for anticoagulation on discharge. He is being discharged home with a cardiac event recorder and cardiology follow up. The patient developed penile bleeding which evidently was his 2nd episode. This was mild and self-limited, and it is felt that benefits of continuing anticoagulation outweigh the risks. He will need urology follow up for eventual cystoscopy as outpatient, likely at a tertiary care facility. Mr Arndt was also diagnosed with prediabetes. He received diabetes/nutrition education and is being discharged home with referral for outpatient follow up with nutrition. He is medically stable for discharge today. He should have blood work done in 1 week (BMP) - results to PCP (Dr Oshea). Care for patient as well as completion of his discharge summary on day of discharge took 60 minutes. Home Meds and New Rx's Prescriptions: New metoprolol succinate 50 mg Tablet Extended Release 24 Hr 50 mg PO DAILY Qty: 30 RF: 0 potassium chloride [Klor-Con M20] 20 mEq Tablet,Er Particles/Crystals 40 meq PO DAILY Qty: 10 RF: 0 lorazepam 0.5 mg Tablet 0.5 mg PO HS PRN PRNQty: 5 RF: 0 Eliquis 5 mg Tablet 5 mg PO BID Qty: 60 RF: 0 guaifenesin [Mucinex] 600 mg Tablet Extended Release 12hr 1,200 mg PO BID Qty: 120 RF: 0 albuterol sulfate [ProAir HFA] 90 mcg/actuation HFA aerosol inhaler 2 puff inhalation QID PRN (Reason: shortness of breath or wheezing) Qty: 8.5 RF: 0 Stiolto Respimat 2.5-2.5 mcg/actuation mist 2 puff inhalation DAILY Qty: 4 RF: 0 Continued glucosamine sulfate 1,000 mg capsule 1,000 mg PO DAILY RF: 0 multivitamin 1 EACH tablet 1 ea PO DAILY RF: 0 aspirin [Aspir-81] 81 MG tablet,delayed release (DR/EC) 81 mg PO DIRECTED RF: 0 vitamin E 400 UNIT capsule 2 cap PO DAILY RF: 0 acetaminophen [Tylenol Extra Strength] 500 MG tablet 500 mg PO PRN Qty: 2 RF: 0 Changed furosemide 40 mg tablet 40 mg PO BID Qty: 20 RF: 0 Discontinued losartan-hydrochlorothiazide 100-25 mg tablet 1 tab PO DAILY Qty: 90 RF: 4 amlodipine 10 mg tablet 10 mg PO DAILY Qty: 90 RF: 4 Discharge Instructions Referrals: Elkin Oshea NP [Primary Care Provider] - Lance Laughlin MD [ [facility] STAFF PHYSICIAN] - Carley Brower MD [ [facility] STAFF PHYSICIAN] - 03/11/21 10:20 am (Across the street from [facility] in the Bottom floor of the [facility]) Daina Bledsoe [MOTION PICTURE EQUIPMENT MACHINIST] - 03/04/21 10:00 am () Brandt Guaman MD [ CONSULTING PHYSICIAN] - 04/05/21 11:20 am Activity:: Activity as Tolerated Equipment/Supplies:: 2L at rest, 3L with activ Diet:: carb consistent low sodium Discharge Orders Discharge Orders: Discharge Order (Routine); Ordered 02/21/21 Ordered By: Munira Jerez Other Ambulatory Orders: Basic Metabolic Panel (Routine) Timeframe: [id number] Facility: [facility] - Location: Laboratory Outpatient Ordered By: Munira Jerez Cardiac Event Recorder (Routine) Timeframe: 1 Day Facility: [facility] - Location: Respiratory Therapy Ordered By: Munira Jerez NM MPI rest & stress grp (Routine) Timeframe: 2 Weeks Facility: [facility] - Location: CARDIAC LAB Ordered By: Munira Jerez DS: Summary Time Spent with Patient providing and/or coordinating discharge services: Greater than 30 minutes Status at Discharge Functional status at discharge: independent ambulation Overall status at discharge: patient is back to baseline Mental Status: mental status grossly normal Speech and Movement: speech and movement normal Mood: congruent mood Affect: normal affect Exam Narrative Exam Narrative: General: Pleasant obese male, A&Ox3, sitting up in a chair, looks better HEENT: EOMI, MMM Heart: RRR, no m/r/g Lungs: improved aeration at B bases, no wheezing Abdomen: soft, nontender, nondistended Extremities: +1 symmetric edema and chronic venous stasis changes B, improved Psych Mental Status: mental status grossly normal Speech and Movement: speech and movement normal Mood: congruent mood Affect: normal affect DS: Data Vitals/I&O Vitals and I&O: Vital Signs Temperature 36.3 C L 02/21/21 05:01 Temperature Source Temporal Artery Scan 02/21/21 05:01 Pulse 58 L 02/21/21 08:40 Pulse Rhythm Regular 02/21/21 08:00 Pulse 48 L 02/21/21 06:16 Respiratory Rate 18 02/21/21 06:16 Respiratory Effort Non-Labored 02/21/21 08:00 Respiratory Depth Normal 02/21/21 08:00 Respiratory Pattern Normal 02/21/21 08:00 Blood Pressure 125/66 02/21/21 06:16 Blood Pressure Mean 80 02/21/21 06:16 Blood Pressure Position Sitting 02/20/21 14:36 Pulse Oximetry 96 02/21/21 06:16 Oxygen Delivery Method Bi-pap 02/21/21 05:01 Oxygen Flow Rate 30 02/21/21 00:00 Fraction of Inspired Oxygen (FIO2) 30 02/21/21 09:02 Pain Level 0 02/21/21 05:01 Comment 02/17/21 11:23 Intake & Output 02/20/21 02/21/21 02/21/21 23:59 11:59 23:59 Intake Total 860 / 1429.833 380 / 380 Output Total 1250 / 3450 1350 / 1350 Balance -390 / -2020.167 -970 / -970 Weight 161.9 kg Intake: IV 20 / 139.833 Oral 840 / 1290 360 / 360 Output: Urine 1250 / 3450 1350 / 1350 Other: Urine Color Yellow Light Mayelin Light Mayelin Urine Appearance Clear Clear Urine Odor Normal None Voiding Methods Urinal Urinal Data Completed and Pending Completed studies during hospitalization [Text1]: CXR 02/17/21: No acute pulmonary findings on this single AP portable view of the chest. CTA chest 02/17/21: 1. No evidence of acute pulmonary emboli. No evidence of pulmonary infarction.No pleural effusions. 2. Mild increased markings are noted in the inferior lingular segment of the left lung. No intrathoracic adenopathy 3. Coronary artery calcification noted. Small left adrenal nodule evident. Probably small adenoma. Echo 02/18/21: This is a technically limited study. Left Ventricle : The left ventricle is normal size. The left ventricular systolic function is normal. The left ventricular ejection fraction is within the normal range. Mild concentric left ventricular hypertrophy. Regional wall motion is not well visualized but grossly normal. LVEF is 58%. Right Ventricle : Right ventricle is not well visualized. Right ventricular systolic function could not be assessed. Valves: There are no hemodynamically significant valvular lesions. Atria : The left atrium size is normal. Right atrium is not well visualized. Great Vessels : The aortic root is normal in size. The ascending aorta is normal in size. The IVC collapses <50% with inspiration. US renal: 1. No new significant ultrasound findings in the kidneys. Stable 3 cm central parapelvic cysts in left kidney again noted. No solid renal masses nor calculi nor hydronephrosis. 2. Postvoid volume is increased with 97 cc remaining urine in the urinary bladder post micturition. No bladder diverticuli evident. Labs on day of discharge: Labs from last 24 hours 02/21/21 02/21/21 08:00 06:30 ABG Sample Site Cancelled ABG pH Cancelled ABG pCO2 Cancelled ABG pO2 Cancelled ABG HCO3 Cancelled ABG Total CO2 Cancelled ABG O2 Saturation Cancelled ABG Base Excess Cancelled Oxygen Liter Flow Cancelled FiO2 Cancelled Sodium 139 Potassium 3.4 L Chloride 98 Carbon Dioxide 39.5 H Anion Gap 1.5 L BUN 20 H Creatinine 0.7 Estimated GFR/1.73 m2 >= 60.00 Glucose 114 H Calcium 9.3 Magnesium 2.6 [facility] Medical History (Updated 02/21/21 @ 16:01 by Munira Jerez MD) Hypertension Obesity, morbid, BMI 50 or higher Surgical History Tonsillectomy and adenoidectomy Family History Mother , age 70+ Heart disease Stroke Cerebral hemorrhage Father , age 70+ Heart disease Stroke Sepsis pancreas Brother Heart disease Stroke Brother Heart disease Stroke Brother , age 58 No problems noted. Son No problems noted. Daughter No problems noted. Social History Smoking/Tobacco Use Status: Former Tobacco Use Tobacco: How many years used: 13 Quit status: has quit before Smoking risk assessment performed?: Yes Alcohol Intake: current Alcohol Intake frequency: holidays/special occasions only Drug use: Never Substance use type: does not use Caregiver/Support person: No Household members: spouse Housing: house Communication Needs: Hard of Hearing and Corrective Lenses Do you need help understanding health information?: Never Pets and animals: Yes Pets and animals: dog(s) Sexually active: No Do you think of yourself as: straight/heterosexual Current gender identity: male What is your relationship status?: How often do you talk on the phone with friends or family?: once per week How often do you get together with friends or relatives?: once per week How often do you attend episcopal or christianity services?: 1-3 times per year Do you belong to any clubs or organized social groups?: no Panel score (0-1 are the most socially isolated patients): 1 What type of physical activity do you participate in: walking Duration: < 15 minutes/day Frequency: 3-4 times per week Maribel/Denominational: [employer] Special maribel needs: No Seatbelt use: always Helmet use: Yes Helmet use: always Drive intox or ride w/intox trash collector truck driver: No Do you feel safe at home: Yes Do you feel safe in your relationship?: Yes
--- NOTE | 2021-02-21 14:02 | W.PFT ---
Date of service: 02/21/21 Time of Service: 11:41 Pulmonary Function Test Result Requesting Provider Dr. Jerez Interpretation Spirometry: There is severe airflow obstruction. There is also restrictive pattern present Impression There is severe airflow obstruction. Decreased FVC could represent pseudorestriction from obesity versus severe airflow limitation. Clinical Correlation therefore is recommended.
--- NOTE | 2021-02-21 14:23 | W.NUTCONSULT ---
Date of service: 02/21/21 Time of Service: 14:24 Nutritional Consult ASSESSMENT: Met with Murray and today to discuss weight loss meal plan. Murray would like to lose 50 lbs in next 6 months. Admitted with NSTEMI, preDM, mobid obesity. Weight has been stable for last 5 years at 370 lbs. Reports gaining > 50 lbs when stopped smoking. Diet recall indicates mostly home made meals, however, not meeting macro nutrient goals for protein, healthy fats. l NUTRITIONAL DIAGNOSIS: Morbid obesity as evidenced by BMI > 50 Pre Diabetes as evidenced by A1c of 5.8% INTERVENTION: Educated and Murray on how to follow a low salt, lower carb diet with focus on complex carbs, non starchy vegetables, lean protein and healthy fats. Education material provided. Follow up appt scheduled for 03/04/21 at 1 pm in outpatient setting. MONITORING AND EVALUATION: weight, po intake, labs Time Spent in Nutritional Counseling and Treatment: 25
[2021-02-21] MEDS: Albuterol HFA 8 GM 60 PUFF INH IH (16:55)
[2021-02-21] MEDS: Tiotropium/Olodaterol 10 PUFF INHALER 2 PUFF IH (16:59)
--- NOTE | 2021-02-21 17:08 | PDOC.CMDIS ---
LACE Index Scoring Tool - Questions: Length of Stay (in days): 3 Acuity (Admit via E.D.?): Yes E.D. Visits: 1 - Answers: Total Score: 7 Risk of Readmission: Low Risk Care Management Discharge Reason for Hospitalization: NSTEMI Discharge Plan: Murray will discharge home with new respiratory equipment, a montior and new prescription for Eliquis; CM provided prescription resources and coupon card. He will transport via private vehicle with his and follow up with his PCP and plan of care as prescribed. Patient/Family Education Needs: Review discharge instructions, discuss Ask Me Three. Services Needed at Discharge: DME Agency
--- NOTE | 2021-03-12 15:33 | W.PFT ---
Date of service: 02/21/21 Time of Service: 11:41 Pulmonary Function Test Result Requesting Provider Madina Jerez Interpretation Spirometry: There is severe airflow limitation. The flow volume loop and the volume-time curve are consistent with severe airflow limitation. Impression Severe airflow limitation. Clinical Correlation therefore is recommended.
== END 2021-02-21 17:20 | disposition home or self-care (01) | DRG 280 ==
LOC: ER 19:48 → ICU 20:20
PROVIDERS: Internal Medicine; Student in an Organized Health Care Education/Training Program; Admitting Provider General Practice; Emergency Provider Student in an Organized Health Care Education/Training Program; PCP Nurse Practitioner Family; Visit Provider General Practice
DX: I21.A1 Myocardial infarction type 2 (principal); J96.21 Acute and chronic respiratory failure with hypoxia; J96.22 Acute and chronic respiratory failure with hypercapnia; E66.2 Morbid (severe) obesity with alveolar hypoventilation; Z68.43 Body mass index [BMI] 50.0-59.9, adult; T17.890A Other foreign object in other parts of respiratory tract causing asphyxiation, initial encounter; J98.11 Atelectasis; I27.20 Pulmonary hypertension, unspecified; Z20.822 Contact with and (suspected) exposure to COVID-19; Z87.891 Personal history of nicotine dependence; I50.813 Acute on chronic right heart failure; I10 Essential (primary) hypertension; R73.03 Prediabetes; I27.81 Cor pulmonale (chronic); J44.9 Chronic obstructive pulmonary disease, unspecified; R31.0 Gross hematuria; I48.0 Paroxysmal atrial fibrillation; E87.6 Hypokalemia
CPT/HCPCS: 36415; 71275; 76770; 80048; 80053; 80061; 82805; 87635; 93005; 93270; 93306; 94618; 94640; 96365; 96366; 96376; 99222; 99285; 36600; 71045; 81003; 81015; 83036; 83735; 83880; 84484; 85025; 85379; 85730; 87086; 93010; 94010; 94660; 99223; 99233; 99239; 99291; J1940; J1941; J3490

== ENCOUNTER → 2021-02-18 08:14 | Outpatient (BNVA) | payer MEDICARE, SELFPAY | PROVIDERS: PCP Nurse Practitioner Family; Referring Provider Nurse Practitioner Family; Visit Provider Internal Medicine Cardiovascular Disease | DX: R69 Illness, unspecified (principal) ==

== ENCOUNTER 2021-02-27 04:44 | Outpatient (CLI) | payer MEDICARE, SELFPAY ==
[2021-02-27 11:35] LABS: Anion Gap 6.6 mmol/L (3-11); BUN 17 mg/dL (7-18); CO2 31.4 mmol/L (21.0-32.0); CREATININE 0.7 mg/dL (0.70-1.30); Calcium 8.8 mg/dL (8.5-10.1); Chloride 101 mmol/L (98-107); Glucose 98 mg/dL (74-106); Potassium 4.6 mmol/L (3.5-5.1); Sodium 139 mmol/L (136-145)
== END 2021-02-27 04:45 | disposition home or self-care (01) ==
LOC: LBO 04:44
PROVIDERS: PCP Nurse Practitioner Family; Visit Provider Internal Medicine
DX: E87.6 Hypokalemia (principal); I10 Essential (primary) hypertension; R73.03 Prediabetes; I50.810 Right heart failure, unspecified
CPT/HCPCS: 36415; 80048

== ENCOUNTER 2021-03-04 04:18 | Outpatient (CLI) | payer MEDICARE, SELFPAY ==
--- NOTE | 2021-03-04 13:00 | NS.NUTBLAN_ITS ---
Murray referred for Medical Nutrition Therapy s/p hospitalization last week for dyapnea. PMH: Morbid obesity, HTN, COPD, preDM. Most recent A1c: 5.7%. 5'9 354 lbs, BMI 52. No change in weight since admission last week. Usual weight about 370 lbs. Here today with that does all the cooking. and contract technical writer met during ICU stay last week. Diet recall indicates Murray has been following recommended diet of 8806-5606 kcal, 80-100 g carbohydrate, 65-75 g protein with emphasis on complex carbs, lean protein and healthy fats. Murray and have identified many lower carb meal choices and feel satisfied. Have also been following < 1500 mg sodium diet. Session today focused on meal options for variety and ways to alter recipes to make them lower in salt and in carbs by adding bigger portions of vegetables and non salt seasonings.. Encouraged routine meal times and activity as tolerated. Also encouraged purchase of scale at home and to weigh daily and monitor fluid/wt fluctuations. No follow up planned at this time. to reach out prn. Encouraged monthly visits to PCP for weight if not have scale at home.
== END 2021-03-04 04:19 | disposition home or self-care (01) ==
LOC: DS 04:19
PROVIDERS: PCP Nurse Practitioner Family; Visit Provider Dietitian, Registered
DX: E66.01 Morbid (severe) obesity due to excess calories (principal); Z68.43 Body mass index [BMI] 50.0-59.9, adult; I10 Essential (primary) hypertension; R73.03 Prediabetes; Z71.3 Dietary counseling and surveillance
CPT/HCPCS: 97802

== ENCOUNTER 2021-03-13 01:10 | Outpatient (CLI) | payer MEDICARE, SELFPAY ==
--- NOTE | 2021-03-13 07:16 | DI.NM_ITS ---
APPROVED REPORT Exam: Pharmacologic Patient Location: Out-Patient Room/Bed: Stress Nurse: Gela Barron RN; Juan Miguel Orr RN Ordering Provider:BERNARDARoseanne MENA, Contact Number: [phone] BMI: 54.48 Baseline Rhythm: Sinus Bradycardia Comment: 1st HB Indications: mildly elevated troponin, Type 2 NSTEMI Medical History Medical History: HTN, morbid obesity, pAF, COPD, preDM, obesity hypoventilation syndrome, AF with RVR , CHF, pulmonary HTN, NSTEMI, former tobacco, HLD, non-ETOH fatty liver Cardiac Medications: potassium chloride, metoprolol succinate, ASA, furosemide, apixiban, albuterol s ulfate Allergies: lisinopril Cardiac Risk Factors: Family Hx, CVD, COPD, HTN, HLD, Smoker, DM, Obesity Previous Cardiac Procedures: None Pretest Chest Pain Characteristics: None Exercise History: Sedentary Physical Disabilities: None Lung Sounds: Clear to auscultation Heart Sounds: Regular Stress Test Details Test: Pharmacologic stress testing performed using 0.4 mg of regadenoson per 5 mL given IV over 10 s econds. Nuclear Acquisition: Rest Tc-99m/Stress Tc-99m 1 day Rest Isotope: Tc-99m Sestamibi. Dose: 14.5 Date: 03/13/2021 Injection Time: 0900 Stress Isotope: Tc-99m Sestamibi. Dose: 46.5 Date: 03/13/2021 Injection Time: 1032 HR Resting HR Supine: 67 bpm Max Heart Rate (APMHR): 145.107773 bpm Target HR (85% APMHR): 123.195541 bpm Max HR Achieved: 80 bpm % of APMHR: 55.17 Recovery HR: 71 bpm BP Resting BP Supine: 132/88 mmHg Max BP: 132/88 mmHg Recovery BP: 127/78 mmHg ECG Resting ECG: Sinus Bradycardia Ectopy: none Comment: 1st AVB, T wave inversion V2, aVL Stress ECG: Sinus Rhythm ST Change: No significant ST segment changes noted Arrhythmia: None Recovery ECG: Sinus Rhythm Recovery ST Change: No significant ST segment changes noted Recovery Arrhythmia: None Clinical Rate Pressure Product: [id number] Stress ECG Conclusion 1. Is a pharmacological stress test. 2. The patient had no symptoms suggestive of ischemia. 3. EKG portion of the exam is nondiagnostic. Stress Test Summary STAGE HR BP Symptoms NOTES Supine 67 132/88 1 min post Lexiscan injection 79 124/84 none O2 99% on 2L NC 3 min post Lexiscan injection 77 118/80 none 6 min post Lexiscan injection 71 127/78 none O2 99% on 2L NC MPI Conclusion The patient's ejection fraction was 64% with stress. There were no wall motion abnormalities. There was no clear evidence of ischemia on the imaging portion exam. This represents a normal SPECT stress test. Radiologist Interpretation Radiologist agrees with Director Of Hemophilia's Interpretation. Radiologist Interpretation by: Makayla Mauricio MD Interpretation Date/Time: 03/18/2021 15:53:25
[2021-03-13] MEDS: Regadenoson 0.4 MG/5 ML SYR IVP (10:16)
--- NOTE | 2021-03-25 08:41 | W.CARDEVENT ---
Date of service: 03/25/21 Time of Service: 08:41 Cardiac Event Recorder Referring Provider:: Roseanne Indications:: A Cardiac Event Note: This is a 30-day event recorder order for indication of atrial fibrillation. ?The patient was in sinus bradycardia for majority the recording with an average heart rate 56 bpm. ?There were 2 automatically detected events 1 associated with a 5 beat run of NSVT. ?There were 3 manually detected events none of which were associated with significant arrhythmia. ?There were no episodes of atrial fibrillation, no pauses greater than 3 seconds and no evidence of high degree heart block.
== END 2021-03-13 01:30 ==
PROVIDERS: PCP Nurse Practitioner Family; Visit Provider Internal Medicine
DX: I21.A1 Myocardial infarction type 2 (principal); Z82.49 Family history of ischemic heart disease and other diseases of the circulatory system; I10 Essential (primary) hypertension; E66.9 Obesity, unspecified; J44.9 Chronic obstructive pulmonary disease, unspecified; F17.210 Nicotine dependence, cigarettes, uncomplicated; E11.9 Type 2 diabetes mellitus without complications
CPT/HCPCS: 78452; 93016; 93018; 93017; J2785

== ENCOUNTER 2021-03-25 08:41 | Outpatient (CLI) | payer MEDICARE, SELFPAY | END 2021-03-25 08:42 | LOC: CARDO 04-16 10:54 | PROVIDERS: PCP Nurse Practitioner Family; Referring Provider Family Medicine; Visit Provider Internal Medicine Cardiovascular Disease | DX: I48.91 Unspecified atrial fibrillation (principal); R00.2 Palpitations; I47.2 Ventricular tachycardia; I49.8 Other specified cardiac arrhythmias | CPT/HCPCS: 93272 ==

== ENCOUNTER → 2021-03-28 11:14 | Outpatient (BNVA) | payer MEDICARE, SELFPAY | PROVIDERS: PCP Nurse Practitioner Family; Referring Provider Nurse Practitioner Family; Visit Provider Internal Medicine Cardiovascular Disease | DX: I48.0 Paroxysmal atrial fibrillation (principal); E66.01 Morbid (severe) obesity due to excess calories; I10 Essential (primary) hypertension | CPT/HCPCS: 99204; 99215 ==

== ENCOUNTER 2021-04-21 03:34 | Outpatient (CLI) | payer MEDICARE, SELFPAY ==
[2021-04-21] MEDS: Albuterol HFA 18 GM 200 PUFF INH IH (13:45)
[2021-04-21] MEDS: Inhaler, Assist Device 1 EACH MC (13:46)
--- NOTE | 2021-04-21 14:22 | W.PFT ---
Date of service: 04/21/21 Time of Service: 13:04 Pulmonary Function Test Result Requesting Provider Inocente Indications: Dyspnea Interpretation Spirometry: Moderate airflow limitation. Lung Volumes: Normal lung volumes Diffusion Capacity: Normal diffusion Airway Pressure: Normal airways resistance Impression Moderate airflow limitation with normal lung volumes and diffusion. In the correct clinical setting this could represent chronic bronchitis or uncontrolled asthma. Note: When compared to 02/21/21, the FEV1 has significantly increased. Clinical Correlation therefore is recommended.
== END 2021-04-21 03:35 | disposition home or self-care (01) ==
LOC: RT 03:35
PROVIDERS: PCP Nurse Practitioner Family; Visit Provider Student in an Organized Health Care Education/Training Program
DX: R06.09 Other forms of dyspnea (principal); J44.9 Chronic obstructive pulmonary disease, unspecified
CPT/HCPCS: 94060; 94726; 94729

== ENCOUNTER 2021-05-19 00:31 | Outpatient (CLI) | payer MEDICARE, SELFPAY ==
--- NOTE | 2021-05-19 13:56 | DI.US_ITS ---
APPROVED REPORT EXAM: Comprehensive 2D, Doppler, and color-flow Echocardiogram Patient Location: Out-Patient Hosting Engineer: Madina Wynne RDCS (AE) Indications: Limited follow up exam. RV Dysfunction, Assess PAP Other Information Study Quality: Fair. Technically limited study due to body habitus, inability to position patient. Conclusion Normal left ventricular wall thickness and chamber size. Estimated ejection fraction is 60 to 65%. Wall motion is normal The right ventricle appears grossly normal in size and systolic function Estimated right ventricular systolic pressure is 31 mmHg Normal tricuspid valve with trace regurgitation Wall motion Left Ventricle The left ventricle is normal size. The left ventricular systolic function is normal. The left ventric ular ejection fraction is within the normal range. There is normal left ventricular wall thickness. T here is normal LV segmental wall motion. LVEF is 60-65%. Right Ventricle Right ventricle is grossly normal in size. Right ventricular systolic function is grossly normal. The RVSP is 30.9mmHg. Tricuspid Valve The tricuspid valve is normal in structure. Trace tricuspid regurgitation. Great Vessels IVC is normal in size and collapses >50% with inspiration. 2D Dimensions IVSD d PLAX 1.21 cm M: 0.6-1.2 LV Vol A4C d MOD 161.2 mL LVPW d PLAX 1.25 cm M: 0.6 - 1.2 LA vol/ BSA A4C s A-L 21.0 mL/m2 LVID d PLAX 4.97 cm M: 4.2 - 5.8 LA Area A4C s MOD 19.02 cm2 LVDs 3.40 cm M: 2.5 - 4.0 LV EF A4C MOD 58.8 % LV EF Teichholz 59.1 % LV Volume Index 62.92 mL/m2 M: 34 - 74 FS 31.45 % Tricuspid Valve TR Peak Grad 27.8 mmHg TR Vmax 2.64 m/s RA Pressure 3.00 mmHg RVSP (TR) 30.9 mmHg
== END 2021-05-19 00:51 ==
PROVIDERS: PCP Physician Assistant; Visit Provider Student in an Organized Health Care Education/Training Program
DX: I50.813 Acute on chronic right heart failure (principal); R93.9 Diagnostic imaging inconclusive due to excess body fat of patient
CPT/HCPCS: 93308

== ENCOUNTER 2021-06-23 03:37 | Outpatient (CLI) | payer MEDICARE, SELFPAY | END 2021-06-23 03:38 | disposition home or self-care (01) | LOC: RT 03:38 | PROVIDERS: PCP Physician Assistant; Visit Provider Student in an Organized Health Care Education/Training Program | DX: J96.91 Respiratory failure, unspecified with hypoxia (principal); J96.92 Respiratory failure, unspecified with hypercapnia | CPT/HCPCS: 94618 ==

== ENCOUNTER 2021-09-25 18:29 | Outpatient (REF) | payer MEDICARE, SELFPAY ==
[2021-09-25 14:54] LABS: Anion Gap 7.1 mmol/L (3-11); BUN 17 mg/dL (7-18); CO2 27.9 mmol/L (21.0-32.0); CREATININE 0.8 mg/dL (0.70-1.30); Calcium 9.1 mg/dL (8.5-10.1); Chloride 102 mmol/L (98-107); Glucose 99 mg/dL (74-106); Potassium 4.3 mmol/L (3.5-5.1); Sodium 137 mmol/L (136-145)
[2021-09-25 15:26] LABS: Hemoglobin A1C 5.6 % (<5.7)
[2021-09-25 16:39] LABS: HCT 42.1 % (40.0-50.0); HGB 13.8 g/dL (13.5-17.5); MCH 30.1 pg (27.0-33.0); MCHC 32.8 % (32.0-36.0); MCV 91.7 fL (80-95); Platelet Count 297 10^3/uL (130-400); RBC 4.59 10^6/uL (4.36-5.78); RDW-SD 47.1 fL; WBC 7.01 10^3/uL (4.4-10.8)
== END 2021-09-25 18:30 | disposition home or self-care (01) ==
LOC: NCHCN 18:29
PROVIDERS: PCP Physician Assistant; Visit Provider Physician Assistant
DX: R73.03 Prediabetes (principal); E78.5 Hyperlipidemia, unspecified; I27.20 Pulmonary hypertension, unspecified
CPT/HCPCS: 80048; 85027; 83036

== ENCOUNTER → 2021-09-26 11:22 | Outpatient (BNVA) | payer MEDICARE, SELFPAY | PROVIDERS: PCP Physician Assistant; Referring Provider Nurse Practitioner Family; Visit Provider Internal Medicine Cardiovascular Disease | DX: I48.0 Paroxysmal atrial fibrillation (principal); E66.2 Morbid (severe) obesity with alveolar hypoventilation; I10 Essential (primary) hypertension | CPT/HCPCS: 99214; 99213 ==

== ENCOUNTER → 2022-03-26 10:45 | Outpatient (BNVA) | payer MEDICARE, SELFPAY | PROVIDERS: PCP Physician Assistant; Referring Provider Physician Assistant; Visit Provider Internal Medicine Cardiovascular Disease | DX: Z79.01 Long term (current) use of anticoagulants (principal); I50.813 Acute on chronic right heart failure; I48.0 Paroxysmal atrial fibrillation; E66.2 Morbid (severe) obesity with alveolar hypoventilation; I10 Essential (primary) hypertension | CPT/HCPCS: 99213 ==

== ENCOUNTER 2022-05-11 09:39 | Outpatient (CLI) | payer MEDICARE, SELFPAY ==
--- NOTE | 2022-05-18 08:54 | W.PFT ---
Date of service: 05/11/22 Time of Service: 22:32 Pulmonary Function Test Result Requesting Provider Inocente Indications: OHS Note: Overnight Oximetry Amount of time analyzed: 7 hours, 1 minute. Wearing Trilogy with no oxygen bleed Number of minutes under 88%: 5.9 min KELVIN: 7.4 Appearance of oxygen saturation pattern:More gradual decreases and increases in SpO2, which could represent pulmonary or cardiac disease Recommendation: Technically qualifies for 1-2LPM bleed in oxygen with Trilogy Carley Brower MD Pulmonary & Critical Care Medicine Clinical Correlation therefore is recommended.
== END 2022-05-11 09:40 | disposition home or self-care (01) ==
LOC: RT 09:50
PROVIDERS: PCP Physician Assistant; Visit Provider Student in an Organized Health Care Education/Training Program
DX: R06.89 Other abnormalities of breathing (principal); E66.8 Other obesity; J44.9 Chronic obstructive pulmonary disease, unspecified; Z87.891 Personal history of nicotine dependence
CPT/HCPCS: 94762

== ENCOUNTER 2022-06-08 15:17 | Outpatient (CLI) | payer MEDICARE, SELFPAY ==
[2022-06-08 15:06] LABS: Hemoglobin A1C 5.6 % (<5.7)
[2022-06-08 15:56] LABS: ALT 37 U/L (16-63); AST 32 U/L (15-37); Albumin 3.6 g/dL (3.4-5.0); Alkaline Phosphatase 62 U/L (46-116); Anion Gap 8.5 mmol/L (3-11); BUN 15 mg/dL (7-18); Bilirubin, Total 0.5 mg/dL (0.2-1.0); CO2 27.5 mmol/L (21.0-32.0); CREATININE 0.8 mg/dL (0.70-1.30); Calcium 8.9 mg/dL (8.5-10.1); Calculated LDL 74 mg/dL (<100); Chloride 104 mmol/L (98-107); Cholesterol 173 mg/dL (<200); Estimated GFR 91.72 (mL/min/1.73m2); Glucose 140 mg/dL (74-106); HDL Cholesterol 47 mg/dL (40-60); Sodium 140 mmol/L (136-145); Total Protein 7.1 g/dL (6.4-8.2); Triglyceride 264 mg/dL (<150)
== END 2022-06-08 15:18 | disposition home or self-care (01) ==
LOC: LBO 15:29
PROVIDERS: PCP Physician Assistant; Visit Provider Physician Assistant
DX: E78.5 Hyperlipidemia, unspecified (principal); R73.03 Prediabetes
CPT/HCPCS: 36415; 80053; 80061; 83036

== ENCOUNTER 2023-05-10 09:08 | Outpatient (CLI) | payer MEDICARE, SELFPAY ==
--- NOTE | 2023-05-10 09:00 | RT.EKG_ITS ---
APPROVED REPORT Exam: Resting ECG Reason for Exam: afib Patient Location: O HR:67 bpm ECG Measurements Heart Rate 67 AXIS ND 207 P 35 QRSd 108 QRS -49 QT 401 T 22 QTc 424 Conclusion Sinus rhythm...normal P axis, V-rate 50- 99 LAD, consider left anterior fascicular block...axis(240,-40), S>R II III aVF Low voltage, precordial leads...precordial leads <1.0mV
== END 2023-05-10 09:09 | disposition home or self-care (01) ==
LOC: DI.CARD 09:09
PROVIDERS: PCP Physician Assistant; Visit Provider Internal Medicine Cardiovascular Disease
DX: I48.91 Unspecified atrial fibrillation (principal)
CPT/HCPCS: 93010

== ENCOUNTER → 2023-05-10 09:49 | Outpatient (BNVA) | payer MEDICARE, SELFPAY | PROVIDERS: PCP Physician Assistant; Visit Provider Internal Medicine Cardiovascular Disease | DX: J96.91 Respiratory failure, unspecified with hypoxia (principal); J96.92 Respiratory failure, unspecified with hypercapnia; I48.0 Paroxysmal atrial fibrillation | CPT/HCPCS: 93005; 99213 ==

== ENCOUNTER 2023-06-24 01:50 | Outpatient (CLI) | payer MEDICARE, SELFPAY ==
[2023-06-24 07:30] LABS: HCT 41.1 % (40.0-50.0); HGB 13.8 g/dL (13.5-17.5); MCH 30.7 pg (27.0-33.0); MCHC 33.6 % (32.0-36.0); MCV 91 fL (80-95); MPV 9.5 fL (8.0-11.0); Platelet Count 245 10^3/uL (130-400); RDW 14.3 % (11.8-14.1); RDW-SD 47.8 fL; WBC 6.42 10^3/uL (4.4-10.8)
[2023-06-24 07:44] LABS: Hemoglobin A1C 5.4 % (<5.7)
[2023-06-24 07:45] LABS: ALT 50 U/L (16-63); AST 29 U/L (15-37); Albumin 3.5 g/dL (3.4-5.0); Alkaline Phosphatase 57 U/L (46-116); Anion Gap 7.7 mmol/L (3-11); BUN 18 mg/dL (7-18); Bilirubin, Total 0.6 mg/dL (0.2-1.0); CO2 28.3 mmol/L (21.0-32.0); CREATININE 0.9 mg/dL (0.70-1.30); Calcium 8.8 mg/dL (8.5-10.1); Calculated LDL 101 mg/dL (<100); Chloride 103 mmol/L (98-107); Cholesterol 180 mg/dL (<200); Estimated GFR 87.96 (mL/min/1.73m2); Glucose 110 mg/dL (74-106); HDL Cholesterol 56 mg/dL (40-60); Potassium 3.8 mmol/L (3.5-5.1); Sodium 139 mmol/L (136-145); Total Protein 7.1 g/dL (6.4-8.2); Triglyceride 118 mg/dL (<150)
== END 2023-06-24 01:51 | disposition home or self-care (01) ==
LOC: LBO 01:50
PROVIDERS: PCP Physician Assistant; Visit Provider Physician Assistant
DX: E78.5 Hyperlipidemia, unspecified (principal); J44.9 Chronic obstructive pulmonary disease, unspecified; I48.0 Paroxysmal atrial fibrillation
CPT/HCPCS: 36415; 80053; 80061; 85027; 83036

== ENCOUNTER → 2023-11-04 09:07 | Outpatient (BNVA) | payer MEDICARE, SELFPAY | PROVIDERS: PCP Physician Assistant; Referring Provider Physician Assistant; Visit Provider Physician Assistant Surgical | DX: J43.1 Panlobular emphysema (principal); E66.2 Morbid (severe) obesity with alveolar hypoventilation; Z87.891 Personal history of nicotine dependence | CPT/HCPCS: 99214 ==

== ENCOUNTER 2024-05-03 15:11 | Outpatient (REF) | payer MEDICARE, SELFPAY ==
[2024-05-03 16:17] LABS: HCT 39.8 % (40.0-50.0); HGB 13.2 g/dL (13.5-17.5); MCH 30.6 pg (27.0-33.0); MCHC 33.2 % (32.0-36.0); MCV 92 fL (80-95); MPV 10.9 fL (8.0-11.0); Platelet Count 260 10^3/uL (130-400); RBC 4.31 10^6/uL (4.36-5.78); RDW 14.5 % (11.8-14.1); RDW-SD 49.2 fL; WBC 6.51 10^3/uL (4.4-10.8)
[2024-05-03 16:30] LABS: ALT 43 U/L (16-63); AST 29 U/L (15-37); Albumin 3.7 g/dL (3.4-5.0); Alkaline Phosphatase 70 U/L (46-116); Anion Gap 8.6 mmol/L (3-11); BUN 20 mg/dL (7-18); Bilirubin, Total 0.86 mg/dL (0.2-1.0); CO2 28.4 mmol/L (21.0-32.0); CREATININE 0.9 mg/dL (0.70-1.30); Calculated LDL 66 mg/dL (<100); Chloride 104 mmol/L (98-107); Cholesterol 142 mg/dL (<200); Estimated GFR 87.42 (mL/min/1.73m2); Glucose 98 mg/dL (74-106); HDL Cholesterol 53 mg/dL (40-60); Potassium 4.2 mmol/L (3.5-5.1); Sodium 141 mmol/L (136-145); Total Protein 7.3 g/dL (6.4-8.2); Triglyceride 119 mg/dL (<150)
== END 2024-05-03 15:12 | disposition home or self-care (01) ==
LOC: NCHCN 15:11
PROVIDERS: PCP Physician Assistant; Visit Provider Physician Assistant
DX: E78.5 Hyperlipidemia, unspecified (principal); I48.0 Paroxysmal atrial fibrillation
CPT/HCPCS: 80053; 80061; 85027

== ENCOUNTER 2024-10-30 03:28 | Outpatient (CLI) | payer MEDICARE, SELFPAY ==
[2024-10-30 09:02] LABS: HCT 41.9 % (40.0-50.0); HGB 13.8 g/dL (13.5-17.5); MCH 30.7 pg (27.0-33.0); MCHC 32.9 % (32.0-36.0); MCV 93 fL (80-95); MPV 9.7 fL (8.0-11.0); Platelet Count 255 10^3/uL (130-400); RDW 14.2 % (11.8-14.1); RDW-SD 48.3 fL; WBC 7.48 10^3/uL (4.4-10.8)
[2024-10-30 09:53] LABS: Iron 92 ug/dL (65-175); Total Iron Binding Capacity 345 ug/dL (250-450); Transferrin Sat 27 % (20-55)
== END 2024-10-30 03:29 | disposition home or self-care (01) ==
LOC: LBO 03:28
PROVIDERS: PCP Physician Assistant; Visit Provider Physician Assistant
DX: I48.0 Paroxysmal atrial fibrillation (principal)
CPT/HCPCS: 36415; 85027; 83540; 83550

== ENCOUNTER → 2024-11-01 10:11 | Outpatient (BNVA) | payer MEDICARE, SELFPAY | PROVIDERS: PCP Physician Assistant; Referring Provider Physician Assistant; Visit Provider Physician Assistant Surgical | DX: J43.1 Panlobular emphysema (principal); G47.30 Sleep apnea, unspecified; Z87.891 Personal history of nicotine dependence; Z29.11 Encounter for prophylactic immunotherapy for respiratory syncytial virus (RSV) | CPT/HCPCS: 90679; 96381; 99214 ==